=== PATIENT | male | born 1935 | race Caucasian/White ===

== ENCOUNTER 2018-11-11 12:55 | Emergency (ER) | payer MEDICARE, OTHER ==
[~2018-11-11] VITALS: Ht 177.8 cm; Wt 91.6 kg
--- NOTE | 2018-11-11 13:21 | ED GI ---
General Stated Complaint: RECTAL BLEEDING Source of Information: Patient Exam Limitations: No Limitations History of Present Illness Date Seen by Provider: Nov 11, 2018 Time Seen by Provider: 13:04 Initial Comments The patient presents to ER by private conveyance with his with chief complaint that 11:00 this morning he had bright red blood per rectum and about an hour later he had a stool with blood mixed in it. He is not having any dysuria, discharge or hematuria. He has a history of a GI bleed from gastric ulcers 10 years ago and had to have EGD and colonoscopy. He had another stress ulcer about 5 or 6 years ago when he had his open heart surgery and had to have an EGD to have it cauterized. The patient had a little bit of low abdominal discomfort initially that went away within about 20 minutes. He has no pain now. He is not having any chest pain shortness of breath. He does not take Plavix but does take baby aspirin daily. He is not on a blood thinner. Allergies and Home Medications Allergies Coded Allergies: morphine (Verified Adverse Reaction, Unknown, 11/11/18) Patient Home Medication List Home Medication List Reviewed: Yes Review of Systems Review of Systems Constitutional: No chills, No diaphoresis EENTM: No Blurred Vision, No Double Vision Respiratory: Denies Cough, Denies Orthopnea Cardiovascular: Denies Chest Pain, Denies Edema, Denies Lightheadedness Gastrointestinal: See HPI; Denies Abdomen Distended; Abdominal Pain; Denies Constipated, Denies Diarrhea, Denies Nausea Genitourinary: Denies Burning, Denies Discharge Musculoskeletal: No back pain, No joint pain Past Wxekabv-Jhbmvu-Pjtluf Hx Patient Social History Alcohol Use: Denies Use Recreational Drug Use: No Smoking Status: Never a Smoker Physical Exam Vital Signs Vital Signs - First Documented 11/11/18 13:00 Temp 98.9 Pulse 67 Resp 16 B/P (MAP) 148/87 (107) Pulse Ox 95 O2 Delivery Room Air Capillary Refill : Height/Weight/BMI Height: '" Weight: lbs. oz. kg; BMI Method: General Appearance: WD/WN, no apparent distress HEENT: PERRL/EOMI, pharynx normal Respiratory: chest non-tender, lungs clear, normal breath sounds, no respirato ry distress, no accessory muscle use Cardiovascular: normal peripheral pulses, regular rate, rhythm, no edema Peripheral Pulses: 2+ Dorsalis Pedis (R), 2+ Left Dors-Pedis (L) Gastrointestinal: normal bowel sounds (active), non tender, soft Rectal: normal rectal tone, heme positive stool; No hemorrhoids; other (bright red blood at the anus) Extremities: normal inspection, no pedal edema, normal capillary refill Neurologic/Psychiatric: alert, normal mood/affect, oriented x 3 Skin: normal color, warm/dry Progress/Results/Core Measures Results/Orders Lab Results Laboratory Tests Test 11/11/18 13:10 11/11/18 13:40 Range/Units Stool Occult Blood Immunoassay POSITIVE H NEGATIVE White Blood Count 7.9 4.3-11.0 10^3/uL Red Blood Count 4.41 4.35-5.85 10^6/uL Hemoglobin 14.1 13.3-17.7 G/DL Hematocrit 42 40-54 % Mean Corpuscular Volume 96 80-99 FL Mean Corpuscular Hemoglobin 32 25-34 PG Mean Corpuscular Hemoglobin Concent 33 32-36 G/DL Red Cell Distribution Width 12.3 10.0-14.5 % Platelet Count 148 130-400 10^3/uL Mean Platelet Volume 11.8 H 7.4-10.4 FL Neutrophils (%) (Auto) 65 42-75 % Lymphocytes (%) (Auto) 24 12-44 % Monocytes (%) (Auto) 8 0-12 % Eosinophils (%) (Auto) 2 0-10 % Basophils (%) (Auto) 1 0-10 % Neutrophils # (Auto) 5.1 1.8-7.8 X 10^3 Lymphocytes # (Auto) 1.9 1.0-4.0 X 10^3 Monocytes # (Auto) 0.6 0.0-1.0 X 10^3 Eosinophils # (Auto) 0.1 0.0-0.3 10^3/uL Basophils # (Auto) 0.1 0.0-0.1 10^3/uL Sodium Level 138 135-145 MMOL/L Potassium Level 3.9 3.6-5.0 MMOL/L Chloride Level 99 98-107 MMOL/L Carbon Dioxide Level 26 21-32 MMOL/L Anion Gap 13 5-14 MMOL/L Blood Urea Nitrogen 20 H 7-18 MG/DL Creatinine 1.17 0.60-1.30 MG/DL Estimat Glomerular Filtration Rate 60 BUN/Creatinine Ratio 17 Glucose Level 104 70-105 MG/DL Calcium Level 8.7 8.5-10.1 MG/DL Corrected Calcium 8.5 8.5-10.1 MG/DL Total Bilirubin 1.6 H 0.1-1.0 MG/DL Aspartate Amino Transf (AST/SGOT) 27 5-34 U/L Alanine Aminotransferase (ALT/SGPT) 30 0-55 U/L Alkaline Phosphatase 32 L 40-136 U/L Total Protein 6.8 6.4-8.2 GM/DL Albumin 4.2 3.2-4.5 GM/DL My Orders Orders - SHERRY FAGAN Cbc With Automated Diff (11/11/18 13:15) Comprehensive Metabolic Panel (11/11/18 13:15) Occult Blood Stool (11/11/18 13:15) Pantoprazole Tablet (Protonix Tablet) (11/11/18 14:00) Vital Signs/I&O 11/11/18 13:00 Temp 98.9 Pulse 67 Resp 16 B/P (MAP) 148/87 (107) Pulse Ox 95 O2 Delivery Room Air Progress Progress Note : Time: 13:22 Progress Note Asymptomatic bright red blood per rectum. He has a history of gastric ulcers and does not member the results of any of his colonoscopies. We'll plan to put him on an antacid and as long as he is not close to needing a transfusion and asymptomatic we will set him up outpatient with general surgery, Dr. Reyes. Consults : Consulting Physician: ADRIANNA REYES DO Consults Notes Discussed the case and he agrees see the patient in the clinic. Departure Impression Primary Impression: BRBPR (bright red blood per rectum) Disposition: 01 HOME, SELF-CARE Condition: Stable Departure-Patient Inst. Decision time for Depature: 14:09 Referrals: ADRIANNA REYES MAXWELL MD (PCP/Family) Primary Care Physician Patient Instructions: Bloody Stools, Adult (DC) Add. Discharge Instructions: group director experience the pantoprazole take 40 mg daily until you see the surgeon and get set up for endoscopy. Call Dr. Reyes and request an appointment. Scripts Pantoprazole Sodium (Pantoprazole Sodium) 40 Mg Tablet. 40 MG PO DAILY for 30 Days, #30 TAB 0 Refills Prov: SHERRY FAGAN 11/11/18 SHERRY FAGAN Nov 11, 2018 13:21
[2018-11-11 13:47] LABS: WHITE BLOOD COUNT 7.9 10^3/uL (4.3-11.0)
[2018-11-11 13:48] LABS: HEMATOCRIT 42 % (40-54); HEMOGLOBIN 14.1 G/DL (13.3-17.7); MEAN CORPUSCULAR HEMOGLOBIN 32 PG (25-34); MEAN CORPUSCULAR HGB CONC 33 G/DL (32-36); MEAN CORPUSCULAR VOLUME 96 FL (80-99); MEAN PLATELET VOLUME 11.8 FL (7.4-10.4); PLATELET COUNT 148 10^3/uL (130-400); RED CELL DISTRIBUTION WIDTH 12.3 % (10.0-14.5)
[2018-11-11 13:49] LABS: BASOPHILS # (AUTO) 0.1 10^3/uL (0.0-0.1); BASOPHILS % (AUTO) 1 % (0-10); EOSINOPHILS # (AUTO) 0.1 10^3/uL (0.0-0.3); EOSINOPHILS % (AUTO) 2 % (0-10); LYMPHOCYTES # (AUTO) 1.9 X 10^3 (1.0-4.0); LYMPHOCYTES % (AUTO) 24 % (12-44); MONOCYTES # (AUTO) 0.6 X 10^3 (0.0-1.0); MONOCYTES % (AUTO) 8 % (0-12); NEUTROPHILS # (AUTO) 5.1 X 10^3 (1.8-7.8); NEUTROPHILS % (AUTO) 65 % (42-75)
[2018-11-11] MEDS ORDERED: PANTOPRAZOLE 40 MG (PROTONIX) TAB PO ONE (14:00)
[2018-11-11 14:05] LABS: BILIRUBIN,TOTAL 1.6 MG/DL (0.1-1.0); CALCIUM 8.7 MG/DL (8.5-10.1); CREATININE SERUM 1.17 MG/DL (0.60-1.30); POTASSIUM 3.9 MMOL/L (3.6-5.0); TOTAL PROTEIN 6.8 GM/DL (6.4-8.2)
[2018-11-11 14:06] LABS: ALBUMIN 4.2 GM/DL (3.2-4.5)
[2018-11-11] MEDS ORDERED: PANT40TA3 PO (14:14)
[2018-11-11 14:30] VITALS: BP 144/68
== END 2018-11-11 14:30 | disposition home or self-care (01) ==
LOC: EDUNIT# 12:55 → ER FS 12:57
DX: K62.5 Hemorrhage of anus and rectum (principal); Z88.5 Allergy status to narcotic agent; Z87.19 Personal history of other diseases of the digestive system
CPT/HCPCS: 36415; 80053; 82274; 85025

== ENCOUNTER 2018-11-13 05:46 | Outpatient (CLI) | payer MEDICARE ==
[~2018-11-13] VITALS: Ht 177.8 cm; Wt 91.6 kg
[~2018-11-13 05:46] MED LIST changes: -ATOR40TA70 PO; -HYDR25TA4 PO; -LISI40TA PO
[2018-11-13] MEDS ORDERED: HYDR25TA4 PO (10:58)
[2018-11-13] MEDS ORDERED: LISI40TA PO (10:58)
[2018-11-13] MEDS ORDERED: ATOR40TA70 PO (10:58)
== END 2018-11-13 10:59 | disposition home or self-care (01) ==
LOC: PREOP 05:46
PROVIDERS: ATTEND Surgery
DX: Z01.818 Encounter for other preprocedural examination (principal)

== ENCOUNTER → 2018-11-13 | Outpatient (CLI) | payer MEDICARE ==
[~2018-11-13] MED LIST: ATOR40TA70 PO; HYDR25TA4 PO; LISI40TA PO; PANT40TA3 PO
[2018-11-13 08:56] LABS: HEMOGLOBIN 15.3 G/DL (13.3-17.7)
== END ==
LOC: LAB FS 08:06
PROVIDERS: ATTEND Surgery
DX: K62.5 Hemorrhage of anus and rectum (principal)
CPT/HCPCS: 36415; 85014; 85018

== ENCOUNTER 2018-11-17 09:27 | Day surgery (SDC) | payer MEDICARE ==
[~2018-11-17] VITALS: Ht 177.8 cm; Wt 91.6 kg
[~2018-11-17 09:27] MED LIST changes: +ATOR40TA70 PO; +HYDR25TA4 PO; +LISI40TA PO
[2018-11-17] MEDS ORDERED: LACTATED RINGERS 1,000 ML IV ONE (09:35)
[2018-11-17 10:00] VITALS: BP 134/81
[2018-11-17] MEDS ORDERED: LACTATED RINGERS 1,000 ML IV STA (10:14)
[2018-11-17] MEDS ORDERED: HURRICAINE EXT TUBE (BENZOCAINE) XX PRN (10:15)
[2018-11-17] MEDS ORDERED: ASPI-999 PO (10:25)
--- NOTE | 2018-11-17 10:56 | Progress Note-Pre Operative ---
Pre-Operative Progress Note H&P Reviewed The H&P was reviewed, patient examined and no changes noted. Time Seen by Provider: 10:54 Date H&P Reviewed: Nov 17, 2018 Time H&P Reviewed: 10:55 Pre-Operative Diagnosis: Rectal bleed SHEY GORDON DO Nov 17, 2018 10:56
[2018-11-17] MEDS ORDERED: PROPOFOL INJECTION 50 ML IV ONE (11:14)
[2018-11-17] MEDS ORDERED: MIDAZOLAM 2 MG/2 ML (VERSED) VIAL ONE (11:15)
[2018-11-17] MEDS ORDERED: fentaNYL INJECTION 100 MCG/2 ML AMP ONE (11:15)
[2018-11-17] MEDS ORDERED: LIDOCAINE PF 2% 5 ML (XYLOCAINE) VIAL ONE (11:15)
[2018-11-17 12:30] VITALS: BP 136/80
--- NOTE | 2018-11-17 12:45 | Progress Note-Post Operative ---
Post-Operative Progess Note Surgeon (s)/Non Destructive Testing Technician (s) Surgeon SHEY GORDON DO Non Destructive Testing Technician: none Pre-Operative Diagnosis Rectal bleed Post-Operative Diagnosis dudoenal ulcer Esophagitis ? Antral ulcer colon polyps diverticula internal hemorrhoids Procedure & Operative Findings Date of Procedure 11/17/18 Procedure Performed/Findings EGD with bx colon with snare Anesthesia Type IV sedation by MUSIC MIXER Estimated Blood Loss Estimated blood loss (mL): scant Specimens/Packing Specimens Removed Duodenal ulcer bx Antral bx GE jxn bx Transverse colon polyp Descending colon polyp SHEY GORDON DO Nov 17, 2018 12:45
--- NOTE | 2018-11-17 12:46 | Endoscopy Discharge Instruct ---
Endo Procedure/Findings Findings 1.: Duodenal Ulcer 2.: Gastritis 3.: Polyp 4.: Diverticulosis, Internal Hemorrhoids Discharge Instructions - Activity: You might feel a little sleepy until tomorrow. This is due to the medicine you received to relax you. Until tomorrow, you should: NOT drive a car, operate machinery or power tools. NOT drink any alcoholic beverages. NOT make any important decisions or sign importortant papers. Do not return to work until tomorrow, unless otherwise instructed. Resume previous activities tomorrow. Diet: Start by taking liquids. If you tolerate liquids, advance to solid food. make an appointment for one week Instructions: 1.: EGD in 6-8 weeks 2.: Colonscopy in 5 years Notify Physician - If you experience excessive bleeding, unusual abdominal pain, fever, or chest pain, contact your doctor immediately. Follow-Up: - I have received and understand the above instructions and will call my doctor if I have any further questions. Patient Signature Date Nurse Signature Other (Relationship) SHEY GORDON DO Nov 17, 2018 12:46
--- NOTE | 2018-11-17 22:05 | OPERATIVE REPORT ---
DATE OF SERVICE: PREOPERATIVE DIAGNOSES: Rectal bleeding, hiatal hernia. POSTOPERATIVE DIAGNOSES: 1. Duodenal ulcer. 2. Esophagitis. 3. Antral ulcer. 4. Colon polyps. 5. Diverticula. 6. Internal hemorrhoids. 7. Hiatal hernia. PROCEDURE: 1. EGD with biopsy. 2. Colonoscopy with snare polypectomy. SURGEON: Ron Cobian DO LINE UP MACHINE OPERATOR: None. ANESTHESIA: IV sedation by the CUPROUS CHLORIDE OPERATOR. SPECIMENS: 1. Biopsy from the duodenal ulcer. 2. Biopsy from the GE junction. 3. Biopsy of the antrum. 4. Transverse colon polyp. 5. Descending colon polyp. BLOOD LOSS: Scant. FLUIDS: Per anesthesia. POSTOPERATIVE CONDITION: Stable. INDICATION FOR PROCEDURE: The patient is an 83-year-old male who had some rectal bleeding and he needed a workup. FINDINGS: The patient had a duodenal ulcer that had looked like it stopped bleeding, no signs of recent bleed. Also had what almost looked like an antral ulcer or kind of a diverticulum, picture taken and biopsie done. He also had large diverticula. He had a couple of polyps as well in the colon and they were snared and then sent to pathology. PROCEDURE NOTE: After informed consent was obtained, the patient was brought to the endoscopy suite, placed in the bed in left lateral decubitus position. He was administered IV sedation by the CUPROUS CHLORIDE OPERATOR who then monitored his vitals the entire time, heart rate, blood pressure and pulse ox and first started with the EGD, placed the scope down the mouth through the esophagus into the stomach, pushed to the antrum and then pushed into the first portion of duodenum noted an ulcer, took a picture of this, pushed into the second and third portion of duodenum looked fine, took a picture. Backed up and then did a biopsy of this duodenal ulcer just the surrounding edge. Pulled back in the antrum looked like it had almost like a diverticula possibly this was an ulcer elected to biopsy this. Retroflexed the scope saw a small hiatal hernia, but no other obvious pathology in the stomach, pulled the scope back up to the GE junction, looked like there was some mild esophagitis and a biopsy here as well. I then switched scopes, switched gloves, went down below, started the colonoscopy, pushed in, on the way in, noted some large diverticula and then in the transverse colon, soft, flat polyp, did snare polypectomy and then pushed passes to the cecum, took a picture of appendiceal orifice and then got into the terminal ileum and took a picture and then slowly withdrew the scope, insufflating to look circumferentially while looking at the cecum up the ascending colon to the hepatic flexure, then down the transverse colon, the splenic flexure, into the descending colon. In the descending colon, saw another flat polyp, did another snare polypectomy and then continued down through the descending colon and the sigmoid colon, again saw large diverticula throughout here and then into the rectum, saw large vessel in here, which could have been part of the bleeding. Retroflexed the scope in the rectal vault, saw very minimal internal hemorrhoids barely grade I and then removed the scope. The patient tolerated the procedure and he was recovered in endoscopy suite. Job ID: [id number] DocumentID: [id number] Dictated Date: 11/17/2018 14:47:58 Clinical Nurse Date: 11/17/2018 22:04:24 Dictated By: RON COBIAN DO
== END 2018-11-17 12:55 | disposition home or self-care (01) ==
LOC: ENDO 09:27
PROVIDERS: ATTEND Surgery
DX: D12.3 Benign neoplasm of transverse colon (principal); D12.4 Benign neoplasm of descending colon; K64.8 Other hemorrhoids; K57.30 Diverticulosis of large intestine without perforation or abscess without bleeding; K26.9 Duodenal ulcer, unspecified as acute or chronic, without hemorrhage or perforation; K25.9 Gastric ulcer, unspecified as acute or chronic, without hemorrhage or perforation; K20.9 Esophagitis, unspecified; I25.10 Atherosclerotic heart disease of native coronary artery without angina pectoris; I10 Essential (primary) hypertension; Z79.82 Long term (current) use of aspirin; Z79.899 Other long term (current) drug therapy

== ENCOUNTER 2020-01-11 15:37 | Inpatient (IN) | payer MEDICARE ==
[~2020-01-11] VITALS: Ht 177 cm; Wt 84.0 kg
[2020-01-11] VITALS (7 sets, daily range): BP systolic 109–123; BP diastolic 64–102
[~2020-01-11 15:37] MED LIST changes: +ASPI-999 PO
--- NOTE | 2020-01-11 15:52 | ED GI ---
General Stated Complaint: RECTAL BLEEDING Source of Information: Patient Exam Limitations: No Limitations History of Present Illness Date Seen by Provider: Jan 11, 2020 Time Seen by Provider: 15:48 Initial Comments To ER with reports of rectal bleeding 3 today. The first episode was very dark and nearly black. The past 2 episodes have been much brighter in color. 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 That occurred at [facility]. He ended up with EGD and cauterization of the bleeding ulcer. He did have a left cochlear implant surgery at [facility] last week. He is not on oral anticoagulation. He has felt progressively more weak as the day has gone on. Timing/Duration: 12 Hours Severity/Quality: Moderate Location: Generalized Abdomen (had some mild abdominal cramping earlier but that is gone.) Radiation: No Radiation Activities at Onset: None Associated Symptoms: Denies Symptoms Allergies and Home Medications Allergies Coded Allergies: morphine (Verified Adverse Reaction, Unknown, 11/11/18) Home Medications Aspirin 81 Mg Tab.chew, 81 MG PO DAILY, (Reported) Atorvastatin Calcium 40 Mg Tablet, 40 MG PO HS, (Reported) Hydrochlorothiazide 25 Mg Tablet, 25 MG PO DAILY, (Reported) Lisinopril 40 Mg Tablet, 40 MG PO BID, (Reported) Patient Home Medication List Home Medication List Reviewed: Yes Review of Systems Review of Systems Constitutional: see HPI; No chills, No fever; weakness EENTM: No Symptoms Reported Respiratory: No Symptoms Reported Cardiovascular: No Symptoms Reported Gastrointestinal: See HPI; Denies Constipated, Denies Diarrhea, Denies Nausea; Rectal Bleeding; Denies Vomiting Genitourinary: No Symptoms Reported Musculoskeletal: no symptoms reported Skin: no symptoms reported Psychiatric/Neurological: No Symptoms Reported Endocrine: No Symptoms Reported Hematologic/Lymphatic: No Symptoms Reported Past Qozcbhr-Rdlzeq-Ejfqlj Hx Patient Social History 2nd Hand Smoke Exposure: No Recent Foreign Travel: No Contact w/Someone Who Travel: No Recent Hopitalizations: No Immunizations Up To Date Date of Pneumonia Vaccine: Jul 18, 2018 Seasonal Allergies Seasonal Allergies: No Past Medical History Surgeries: Yes (right hip replacement) Appendectomy, CABG, Gallbladder, Joint Replacement Respiratory: No Cardiac: Yes (stents x3, quad bypass 2014) Coronary Artery Disease, High Cholesterol Neurological: No Genitourinary: No Gastrointestinal: Yes (rectal bleeding) Musculoskeletal: No Endocrine: No HEENT: No Cancer: No Psychosocial: No Integumentary: No Blood Disorders: No Physical Exam Vital Signs Capillary Refill : Height/Weight/BMI Height: 5'10.00" Weight: 202lbs. 0.0oz. [id number]; 29.0 BMI Method:Stated General Appearance: WD/WN, no apparent distress, other (alert and oriented and hemodynamically stable without tachycardia or hypotension.) HEENT: PERRL/EOMI, normal ENT inspection (pale conjunctiva) Respiratory: no respiratory distress, no accessory muscle use Cardiovascular: regular rate, rhythm, no murmur Gastrointestinal: normal bowel sounds, non tender, soft Extremities: normal range of motion, non-tender Neurologic/Psychiatric: alert, normal mood/affect Skin: normal color, warm/dry Progress/Results/Core Measures Results/Orders My Orders Orders - PLIO COLLAZO APRN Protime With Inr (01/11/20 15:46) Partial Thromboplastin Time (01/11/20 15:46) Cbc With Automated Diff (01/11/20 15:46) Comprehensive Metabolic Panel (01/11/20 15:46) Ed Iv/Invasive Line Start (01/11/20 15:46) Red Cells Leukocytes Reduced (01/11/20 15:46) Pantoprazole Injection (Protonix Injecti (01/11/20 16:00) Departure Impression Primary Impression: Gastrointestinal bleed Qualified Codes: K92.2 - Gastrointestinal hemorrhage, unspecified Disposition: ADMITTED INPATIENT Condition: Stable Admissions Decision to Admit Reason: Admit from ER (General) Decision to Admit/Date: Jan 11, 2020 Time/Decision to Admit Time: 15:52 Departure-Patient Inst. Referrals: DEREK PAUL MD (PCP/Family) Primary Care Physician PILO COLLAZO APRN Jan 11, 2020 15:52
[2020-01-11] MEDS ORDERED: PANTOPRAZOLE 40 MG (PROTONIX) VIAL IV ONE (16:00)
[2020-01-11 16:05] LABS: BASOPHILS # (AUTO) 0.1 10^3/uL (0.0-0.1); BASOPHILS % (AUTO) 1 % (0-10); EOSINOPHILS # (AUTO) 0.2 10^3/uL (0.0-0.3); EOSINOPHILS % (AUTO) 1 % (0-10); HEMATOCRIT 40 % (40-54); HEMOGLOBIN 13.3 G/DL (13.3-17.7); LYMPHOCYTES # (AUTO) 2.6 X 10^3 (1.0-4.0); LYMPHOCYTES % (AUTO) 23 % (12-44); MEAN CORPUSCULAR HEMOGLOBIN 32 PG (25-34); MEAN CORPUSCULAR HGB CONC 34 G/DL (32-36); MEAN CORPUSCULAR VOLUME 97 FL (80-99); MEAN PLATELET VOLUME 12.5 FL (7.4-10.4); MONOCYTES # (AUTO) 0.9 X 10^3 (0.0-1.0); MONOCYTES % (AUTO) 8 % (0-12); NEUTROPHILS # (AUTO) 7.6 X 10^3 (1.8-7.8); NEUTROPHILS % (AUTO) 67 % (42-75); PLATELET COUNT 201 10^3/uL (130-400); RED CELL DISTRIBUTION WIDTH 12.4 % (10.0-14.5); WHITE BLOOD COUNT 11.3 10^3/uL (4.3-11.0)
--- NOTE | 2020-01-11 16:15 | NUR ---
Pt assisted to restroom by ES Rowan; pt noted to have large bloody stool as described by Harpal.
[2020-01-11 16:21] LABS: PROTHROMBIN TIME PATIENT 13.6 SEC (12.2-14.7)
[2020-01-11 16:24] LABS: BILIRUBIN,TOTAL 0.9 MG/DL (0.1-1.0); CALCIUM 8.9 MG/DL (8.5-10.1); CREATININE SERUM 1.25 MG/DL (0.60-1.30); POTASSIUM 4.3 MMOL/L (3.6-5.0); TOTAL PROTEIN 7.2 GM/DL (6.4-8.2)
[2020-01-11] MEDS ORDERED: NS IV 1000 ML 1,000 ML IV SCH (16:30)
--- NOTE | 2020-01-11 16:35 | NUR ---
Pt noted to have an episode of hypotension; Harpal aware and order received for IV fluid. Will continue to monitor.
--- NOTE | 2020-01-11 17:02 | NUR ---
Family called and updated on admission and visitor policy.
--- NOTE | 2020-01-11 17:03 | NUR ---
Dr. Cobian at bedside for assessment.
--- NOTE | 2020-01-11 17:37 | Consultation - Surgery ---
History of Present Illness History of Present Illness Patient Consulted On(bj/time) 01/11/20 17:32 Time Seen by Provider: 17:02 History of Present Illness Surgery asked to consult regarding rectal bleed. HPI per ED: To ER with reports of rectal bleeding 3 today. The first episode was very dark and nearly black. The past 2 episodes have been much brighter in color. 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 That occurred at [facility]. He ended up with EGD and cauterization of the bleeding ulcer. He did have a left cochlear implant surgery at [facility] last week. He is not on oral anticoagulation. He has felt progressively more weak as the day has gone on. Timing/Duration: 12 Hours Severity/Quality: Moderate Location: Generalized Abdomen (had some mild abdominal cramping earlier but that is gone.) Radiation: No Radiation Activities at Onset: None Associated Symptoms: Denies Symptoms When I spoke to the pt he stated he hadn't had any bleeding or problems since I last saw him November 2018. He states "my stomach was rolling, like gas or have to have BM, but no pain". When I saw him in 2019 he had Antral and Duodenal ulcer with polyps in colon, but no bleeding from any colon pathology. Allergies and Home Medications Allergies Coded Allergies: morphine (Verified Adverse Reaction, Unknown, 11/11/18) Home Medications Aspirin 81 Mg Tab.chew, 81 MG PO DAILY, (Reported) Atorvastatin Calcium 40 Mg Tablet, 40 MG PO HS, (Reported) Hydrochlorothiazide 25 Mg Tablet, 25 MG PO DAILY, (Reported) Lisinopril 40 Mg Tablet, 40 MG PO BID, (Reported) Patient Home Medication List Home Medication List Reviewed: Yes Past Jucveje-Vmiaki-Tbfemz Hx Patient Social History Alcohol Use: Denies Use Recreational Drug Use: No Smoking Status: Never a Smoker 2nd Hand Smoke Exposure: No Recent Foreign Travel: No Contact w/Someone Who Travel: No Recent Infectious Disease Expo: No Recent Hopitalizations: No Immunizations Up To Date Date of Pneumonia Vaccine: Jul 18, 2018 Seasonal Allergies Seasonal Allergies: No Surgeries History of Surgeries: Yes (right hip replacement) Surgeries: Appendectomy, CABG, Gallbladder, Joint Replacement Respiratory History of Respiratory Disorde: No Cardiovascular History of Cardiac Disorders: Yes (stents x3, quad bypass 2014) Cardiac Disorders: Coronary Artery Disease, High Cholesterol Neurological History of Neurological Disord: No Genitourinary History of Genitourinary Disor: No Gastrointestinal History of Gastrointestinal Di: Yes (rectal bleeding) Musculoskeletal History of Musculoskeletal Dis: No Endocrine History of Endocrine Disorders: No HEENT History of HEENT Disorders: Yes Loss of Vision: Denies Hearing Impairment: Hard of Hearing, Hearing Aide Right, Hearing Aide Left (cochlear implant, placed last week) Cancer History of Cancer: No Psychosocial History of Psychiatric Problem: No Integumentary History of Skin or Integumenta: No Blood Transfusions History of Blood Disorders: No Family Medical History Significant Family History: DVT/PE (sister), Other Conditions/Hx (Pt denies any HTN, DM or CAD in his family) Review of Systems-General Constitutional: dizziness, malaise, weakness EENTM: hearing loss; No blurred vision, No double vision, No epistaxis, No throat swelling Respiratory: No dyspnea on exertion, No hemoptysis, No short of breath Cardiovascular: No chest pain, No edema; Hx of Intervention; No palpitations Gastrointestinal: No abdominal pain, No nausea, No vomiting Genitourinary: No dysuria, No frequency, No hematuria Musculoskeletal: joint pain, joint swelling, muscle stiffness Skin: No change in color, No change in hair/nails Psychiatric/Neurological: Denies Anxiety, Denies Depressed, Denies Seizure, Denies Tremors Other Pt denies any hx of abnormal bleeding or bruising Physical Exam-General Problems Physical Exam Vital Signs Vital Signs - First Documented 01/11/20 16:00 Temp 36.7 Pulse 95 Resp 18 B/P (MAP) 130/85 (100) Pulse Ox 94 O2 Delivery Room Air Capillary Refill : Less Than 3 Seconds General Appearance: WD/WN, no apparent distress Eyes: Bilateral Eye PERRL, Bilateral Eye EOMI HEENT: pharynx normal; No scleral icterus (R), No scleral icterus (L); other (incision behind left ear (sutures still in place) from cochlear implant) Neck: non-tender, supple Respiratory: lungs clear, normal breath sounds, no respiratory distress, no accessory muscle use Cardiovascular: regular rate, rhythm, no murmur Gastrointestinal: non tender, soft, no organomegaly, no pulsatile mass Back: no CVA tenderness, no vertebral tenderness Extremities: normal range of motion, no pedal edema, no calf tenderness, normal capillary refill Neurologic/Psychiatric: alert, normal mood/affect, oriented x 3 Skin: normal color, warm/dry Lymphatic: no adenopathy (neck, axilla or groin) Data Review Labs Laboratory Tests 01/11/20 15:49: White Blood Count 11.3H, Red Blood Count 4.10L, Hemoglobin 13.3, Hematocrit 40, Mean Corpuscular Volume 97, Mean Corpuscular Hemoglobin 32, Mean Corpuscular Hemoglobin Concent 34, Red Cell Distribution Width 12.4, Platelet Count 201, Mean Platelet Volume 12.5H, Neutrophils (%) (Auto) 67, Lymphocytes (%) (Auto) 23, Monocytes (%) (Auto) 8, Eosinophils (%) (Auto) 1, Basophils (%) (Auto) 1, Neutrophils # (Auto) 7.6, Lymphocytes # (Auto) 2.6, Monocytes # (Auto) 0.9, Eosinophils # (Auto) 0.2, Basophils # (Auto) 0.1, Prothrombin Time 13.6, INR Comment 1.0, Activated Partial Thromboplast Time 31, Sodium Level 137, Potassium Level 4.3, Chloride Level 103, Carbon Dioxide Level 24, Anion Gap 10, Blood Urea Nitrogen 20H, Creatinine 1.25, Estimat Glomerular Filtration Rate 55, BUN/Creatinine Ratio 16, Glucose Level 115H, Calcium Level 8.9, Corrected Calcium 8.9, Total Bilirubin 0.9, Aspartate Amino Transf (AST/SGOT) 23, Alanine Aminotransferase (ALT/SGPT) 30, Alkaline Phosphatase 41, Total Protein 7.2, Albumin 4.0 Assessment/Plan Assessment/Plan Assessment/Plan Rectal Bleed CAD, HTN Hx of Antral and Duodenal Ulcer Pt is being admitted to the ICU secondary to 4 bloody BM's. He will have IV fluids started, check H/H in the am, clear liquids and NPO after midnight. Unfortunately it is too late to prep him today for Colonoscopy and he ate around lunch time; therefore, EGD will be scheduled for tomorrow and Colonoscopy on Saturday (bowel prep Saturday). Pt has been through both before and we went over the procedures again; risks and complications not limited to pain, bleeding, infection, scar and even intestinal or esophageal perforation. All questions answered to his satisfaction. Consent ordered. SHEY GORDON DO Jan 11, 2020 17:37
[2020-01-11] MEDS ORDERED: ONDANSETRON 4 MG/2 ML (SDV) Z0FRAN IV PRN ×2 (17:45→18:15)
[2020-01-11] MEDS ORDERED: CATHETER FLUSH 10 ML SYR IV PRN (17:45)
[2020-01-11] MEDS: LACTATED RINGERS 1,000 ML IV SCH (17:52)
[2020-01-11 18:11] LABS: HEMOGLOBIN 11.8 G/DL (13.3-17.7)
--- NOTE | 2020-01-11 18:22 | NUR ---
DR CORBETT INFORMED OF CONSULT AND DR GORDON INFORMED OF H&H. NO NEW ORDERS RECEIVED.
--- NOTE | 2020-01-11 20:26 | History & Physical-Hospitalist ---
History of Present Illness HPI/Chief Complaint CC: GIB HPI: This is an 84yoWM clinic patient of [facility] who presented to the ER with bloody stools. Patient is known to Dr Cobian for stomach ulcers and GIB so he has been consulted. Patient is hemodynamically stable but the amount of bloody stools increases risk for hypovolumic shock she he was admitted to ICU. Source: patient, RN/MD Exam Limitations: no limitations Date Seen 01/11/20 Time Seen by a Provider: 18:00 Attending Physician Nel Julien DO PCP Self,Tac[facility]ANCE Referring Physician Date of Admission Jan 11, 2020 at 16:22 Home Medications & Allergies Home Medications Reviewed patient Home Medication Reconciliation performed by pharmacy medication reconciliations voip network technician and/or nursing. Patients Allergies have been reviewed. Allergies Allergies Coded Allergies morphine (Verified Adverse Reaction, Unknown, 11/11/18) Past Whdktlx-Sutcue-Jcluvg Hx Past Med/Social Hx: Reviewed Nursing Past Med/Soc Hx, Reviewed and Corrections made Patient Social History Marrital Status: Employed/Student: retired Alcohol Use: Denies Use Recreational Drug Use: No Smoking Status: Never a Smoker 2nd Hand Smoke Exposure: No Recent Foreign Travel: No Contact w/other who traveled: No Recent Hopitalizations: No Recent Infectious Disease Expo: No Immunizations Up To Date Date of Pneumonia Vaccine: Jul 18, 2018 Seasonal Allergies Seasonal Allergies: No Past Medical History Surgeries: Appendectomy, CABG, Gallbladder, Joint Replacement Cardiac: Coronary Artery Disease, High Cholesterol Gastrointestinal: Ulcer Musculoskeletal: Arthritis Loss of Vision: Denies Hearing Impairment: Hard of Hearing, Hearing Aide Right, Hearing Aide Left (cochlear implant, placed last week) History of Blood Disorders: No Family History Blood clots G8 SISTER DVT/PE (sister), Other Conditions/Hx (Pt denies any HTN, DM or CAD in his family) Review of Systems Constitutional: see HPI, dizziness, weakness Gastrointestinal: melena, nausea Physical Exam Physical Exam Vital Signs Vital Signs - First Documented 01/11/20 16:00 Temp 36.7 Pulse 95 Resp 18 B/P (MAP) 130/85 (100) Pulse Ox 94 O2 Delivery Room Air Capillary Refill : Less Than 3 Seconds Height, Weight, BMI Height: 5'10.00" Weight: 202lbs. 0.0oz. 91.042254ri; 26.00 BMI Method:Stated General Appearance: No Apparent Distress, Chronically ill Eyes: Right Eye Normal Inspection, Right Eye PERRL HEENT: PERRL/EOMI, TMs Normal, Normal ENT Inspection, Pharynx Normal, Moist Mucous Membranes Neck: Full Range of Motion, Normal Inspection, Non Tender Respiratory: Chest Non Tender, Lungs Clear, Normal Breath Sounds, No Accessory Muscle Use, No Respiratory Distress Cardiovascular: Regular Rate, Rhythm, No Edema, No Gallop, No JVD, No Murmur, Normal Peripheral Pulses Gastrointestinal: Normal Bowel Sounds, No Organomegaly, No Pulsatile Mass, Non Tender, Soft Back: Normal Inspection, No CVA Tenderness, No Vertebral Tenderness Extremity: Normal Capillary Refill, Normal Inspection, Normal Range of Motion, Non Tender, No Calf Tenderness, No Pedal Edema Neurologic/Psychiatric: Alert, Oriented x3, No Motor/Sensory Deficits, Normal Mood/Affect Skin: Normal Color, Warm/Dry Lymphatic: No Adenopathy Results Results/Procedures Labs Laboratory Tests 01/11/20 15:49 01/11/20 17:59 Patient resulted labs reviewed. Assessment/Plan Admission Diagnosis Assessment: GIB Acute blood loss anemia HTN Plan: ICU Dr Cobian consult appreciated Admission Status: Inpatient Order (span 2 midnights) Reason for Inpatient Admission: GIB Diagnosis/Problems Diagnosis/Problems (1) Gastrointestinal bleed Status: Acute Qualifiers: GI bleed type/associated pathology: unspecified gastrointestinal hemorrhage type Qualified Codes: K92.2 - Gastrointestinal hemorrhage, unspecified Clinical Quality Measures DVT/VTE Risk/Contraindication: Risk Factor Score Per Nursin RFS Level Per Nursing on Admit: 4+=Very High Other: GI BLEED NEL JULIEN DO Jan 11, 2020 20:26
[2020-01-11] MEDS: MELATONIN 3 MG TABLET PO SCH (21:00)
[2020-01-11] MEDS: PANTOPRAZOLE 40 MG (PROTONIX) VIAL IV SCH (21:00)
[2020-01-12] VITALS (17 sets, daily range): BP systolic 81–147; BP diastolic 51–86
[2020-01-12] MEDS: LACTATED RINGERS 1,000 ML IV SCH ×2 (02:29→16:47)
[2020-01-12 03:43] LABS: BASOPHILS # (AUTO) 0.1 10^3/uL (0.0-0.1); BASOPHILS % (AUTO) 1 % (0-10); EOSINOPHILS # (AUTO) 0.2 10^3/uL (0.0-0.3); EOSINOPHILS % (AUTO) 2 % (0-10); HEMATOCRIT 33 % (40-54); HEMOGLOBIN 10.8 G/DL (13.3-17.7); LYMPHOCYTES # (AUTO) 2.4 X 10^3 (1.0-4.0); LYMPHOCYTES % (AUTO) 24 % (12-44); MEAN CORPUSCULAR HEMOGLOBIN 32 PG (25-34); MEAN CORPUSCULAR HGB CONC 33 G/DL (32-36); MEAN CORPUSCULAR VOLUME 98 FL (80-99); MEAN PLATELET VOLUME 12.2 FL (7.4-10.4); MONOCYTES # (AUTO) 0.8 X 10^3 (0.0-1.0); MONOCYTES % (AUTO) 8 % (0-12); NEUTROPHILS # (AUTO) 6.4 X 10^3 (1.8-7.8); NEUTROPHILS % (AUTO) 65 % (42-75); PLATELET COUNT 147 10^3/uL (130-400); RED CELL DISTRIBUTION WIDTH 12.5 % (10.0-14.5); WHITE BLOOD COUNT 9.9 10^3/uL (4.3-11.0)
[2020-01-12 04:01] LABS: BUN/CREATININE RATIO 18; CARBON DIOXIDE 20 MMOL/L (21-32); CHLORIDE 106 MMOL/L (98-107); CREATININE SERUM 1.03 MG/DL (0.60-1.30); GFR ESTIMATED > 60; GLUCOSE 103 MG/DL (70-105); MAGNESIUM 1.6 MG/DL (1.6-2.4); PHOSPHORUS 2.9 MG/DL (2.3-4.7); POTASSIUM 3.9 MMOL/L (3.6-5.0); SODIUM 137 MMOL/L (135-145)
--- NOTE | 2020-01-12 05:06 | Pulmonary Consultation ---
KERRY GILLESPIE,MED STUDENT 01/12/20 0506: History of Present Illness History of Present Illness Date Seen by Provider: Jan 12, 2020 Time Seen by Provider: 04:48 Date of Admission History of Present Illness Pateint is a 84 yo male that presented to the ER yesterday with blood in his stool x3. The first episode was described as dark/black and the 2nd/3rd episodes were a brighter color. 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 He had a left cocholer implant placed last week by Dr. Sid Oliver at [facility]. He reports having a colonoscopy by Dr. Cobian last year. Currently that patient says that he feels good and is ready to get his EGD and colonoscopy done; EGD is scheduled for today and Colonoscopy is scheduled for tomorrow, both will be preformed by Dr. Cobian. Allergies and Home Medications Allergies Coded Allergies: morphine (Verified Adverse Reaction, Unknown, 11/11/18) Home Medications Aspirin 81 Mg Tab.chew, 81 MG PO DAILY, (Reported) Atorvastatin Calcium 40 Mg Tablet, 40 MG PO HS, (Reported) Hydrochlorothiazide 25 Mg Tablet, 25 MG PO DAILY, (Reported) Lisinopril 40 Mg Tablet, 40 MG PO BID, (Reported) Past Mdnzczk-Bepcyt-Zxhdoc Hx Past Med/Social Hx: Reviewed Nursing Past Med/Soc Hx, Reviewed and Corrections made Patient Social History Alcohol Use: Denies Use Recreational Drug Use: No Smoking Status: Never a Smoker 2nd Hand Smoke Exposure: No Recent Foreign Travel: No Contact w/Someone Who Travel: No Recent Infectious Disease Expo: No Recent Hopitalizations: No Immunizations Up To Date Date of Pneumonia Vaccine: Jul 18, 2018 Seasonal Allergies Seasonal Allergies: No Past Medical History Surgeries: Yes (right hip replacement) Appendectomy, CABG, Gallbladder, Joint Replacement Respiratory: No Cardiac: Yes (stents x3, quad bypass 2014) Coronary Artery Disease, High Cholesterol Neurological: No Genitourinary: No Gastrointestinal: Yes (rectal bleeding) Ulcer Musculoskeletal: No Arthritis Endocrine: No HEENT: Yes Loss of Vision: Denies Hearing Impairment: Hard of Hearing, Hearing Aide Right, Hearing Aide Left (cochlear implant, placed last week) Cancer: No Psychosocial: No Integumentary: No Blood Disorders: No Family Medical History Blood clots G8 SISTER DVT/PE (sister), Other Conditions/Hx (Pt denies any HTN, DM or CAD in his family) Review of Systems Constitutional: No: Fever, Chills, Sweats ENT: Other (bilateral hearing loss L>R); No: Ear pain Respiratory: No: Cough, Dry, Shortness of breath Cardiovascular: No: Chest Pain, Palpitations, Orthopnea, Edema Gastrointestinal: Diarrhea, Melena, Hematochezia; No: Nausea, Vomiting Genitourinary: No Dysuria, No Frequency Skin: No: Rash, Lesions Sepsis Event Evaluation Height, Weight, BMI Height: 5'10.00" Weight: 202lbs. 0.0oz. 91.465832rn; 26.00 BMI Method:Stated Exam Exam Vital Signs Date Time Temp Pulse Resp B/P (MAP) Pulse Ox O2 Delivery O2 Flow Rate FiO2 01/12/20 04:00 100 Room Air 01/12/20 03:00 57 9 115/70 (85) 97 Room Air 01/12/20 02:06 57 111/72 (85) 97 Room Air 01/12/20 01:00 59 01/12/20 01:00 59 12 107/62 (77) 97 Room Air 01/12/20 00:00 36.4 01/12/20 00:00 63 16 118/74 (89) 97 Room Air 01/12/20 00:00 96 Room Air 01/11/20 23:00 64 16 109/65 (80) 97 Room Air 01/11/20 22:00 67 33 112/70 (84) 97 Room Air 01/11/20 21:00 67 22 115/85 (95) 100 Room Air 01/11/20 20:00 69 17 110/64 (79) 99 Room Air 01/11/20 20:00 99 Room Air 01/11/20 19:00 71 01/11/20 19:00 71 119/73 (88) 98 Room Air 01/11/20 18:00 69 11 116/102 (107) 100 Room Air 01/11/20 17:25 36.1 01/11/20 17:21 70 01/11/20 17:15 123/75 (91) Room Air 01/11/20 17:12 97 Room Air 01/11/20 16:56 74 18 118/81 97 Room Air 01/11/20 16:00 36.7 95 18 130/85 (100) 94 Room Air I & O 01/12/20 07:00 Intake Total 2020 ml Balance 2020 ml Height & Weight Height: 5'10.00" Weight: 202lbs. 0.0oz. 91.224573mi; 26.00 BMI Method:Stated General Appearance: No Apparent Distress, Chronically ill HEENT: PERRL/EOMI, TMs Normal Neck: Full Range of Motion, Normal Inspection, Non Tender Respiratory: Chest Non Tender, Lungs Clear, Normal Breath Sounds, No Accessory Muscle Use, No Respiratory Distress Cardiovascular: Regular Rate, Rhythm, No Edema, No Gallop, No JVD, No Murmur, Normal Peripheral Pulses Capillary Refill: Less Than 3 Seconds Gastrointestinal: non tender, soft, no organomegaly, no pulsatile mass Extremity: Normal Capillary Refill, Normal Inspection, Normal Range of Motion, Non Tender, No Calf Tenderness, No Pedal Edema Neurologic/Psychiatric: Alert, Oriented x3, No Motor/Sensory Deficits, Normal Mood/Affect Skin: Normal Color, Warm/Dry Results Lab Laboratory Tests 01/11/20 15:49 01/11/20 17:59 01/12/20 03:33 Assessment/Plan Assessment/Plan GI bleeding of unknown origin - Agree with surgery management and plan - pantoprazol 40mg BID and LR @ 100ml/hr - EGD planned for today by Dr. Cobian - Colonoscopy planned for tomorrow with bowel prep started today, by Dr. Cobian Hx of gastric and duodenal ulcers At this time patient can be transferred to the 4th floor HUBER SNELL DO 01/12/20 0654: Allergies and Home Medications Allergies Coded Allergies: morphine (Verified Adverse Reaction, Unknown, 11/11/18) Home Medications Aspirin 81 Mg Tab.chew, 81 MG PO DAILY, (Reported) Atorvastatin Calcium 40 Mg Tablet, 40 MG PO HS, (Reported) Hydrochlorothiazide 25 Mg Tablet, 25 MG PO DAILY, (Reported) Lisinopril 40 Mg Tablet, 40 MG PO BID, (Reported) Past Iluosdg-Nrbywh-Hnrnus Hx Family Medical History Blood clots G8 SISTER Review of Systems Time Seen by Provider: 06:50 Exam Exam General Appearance: No Apparent Distress HEENT: PERRL/EOMI, TMs Normal Neck: Normal Inspection, Non Tender Respiratory: Chest Non Tender, Lungs Clear, Normal Breath Sounds, No Accessory Muscle Use, No Respiratory Distress Cardiovascular: Regular Rate, Rhythm, No Edema, No Gallop, No JVD, No Murmur, Normal Peripheral Pulses Gastrointestinal: non tender, soft, no organomegaly, no pulsatile mass Extremity: Normal Capillary Refill, Normal Inspection, Normal Range of Motion, Non Tender, No Calf Tenderness, No Pedal Edema Neurologic/Psychiatric: Alert, Oriented x3, No Motor/Sensory Deficits, Normal Mood/Affect Skin: Normal Color, Warm/Dry Assessment/Plan Assessment/Plan GI bleed -Surgery consulted and plan is for scope today -Continue Protonix IV 40mg BID -Continue ICU care for now and await scopes -Monitor HB Hx of gastric and duodenal ulcers Supervisory-Addendum Brief Verification & Attestation Participated in pt care: history, MDM, physical Personally performed: exam, history, MDM Care discussed with: Medical Student Procedures: n/a Verification and Attestation of Medical Student E/M Service A medical student performed and documented this service in my presence. I reviewed and verified all information documented by the medical student and made modifications to such information, when appropriate. I personally performed the physical exam and medical decision making. Huber Snell, Jan 12, 2020,06:53 KERRY GILLESPIE,MED STUDENT Jan 12, 2020 05:06 HUBER SNELL DO Jan 12, 2020 06:54
[2020-01-12] MEDS ORDERED: PROMETHAZINE INJ 25 MG/ML (PHENERGAN) AMP ONE (05:58)
[2020-01-12] MEDS ORDERED: MAGNESIUM 1 GM/100 ML IVPB 100 ML IV SCH (06:00)
[2020-01-12] MEDS ORDERED: KCL 20 MEQ TAB (K-DUR) PO SCH (06:00)
[2020-01-12] MEDS ORDERED: POTASSIUM CL 10MEQ/50ML IVPB 50 ML IV SCH (06:00)
[2020-01-12] MEDS: PROMETHAZINE INJ 25 MG/ML (PHENERGAN) AMP IVP PRN ×2 (06:14→17:42)
[2020-01-12] MEDS: MAGNESIUM 1 GM/100 ML IVPB 100 ML IV SCH ×2 (06:23→08:57)
--- NOTE | 2020-01-12 07:57 | Diagnostic Imaging Report ---
INDICATION: Dyspnea. TECHNIQUE: Single view chest 3:17 AM. CORRELATION STUDY: None FINDINGS: Poststernotomy and coronary artery bypass. Heart size upper limits of normal. Prominent mediastinum with tortuous course of thoracic aorta. Pulmonary vasculature overall within normal limits. The lungs are clear with no consolidating infiltrate. There is no significant effusion or pneumothorax. IMPRESSION: 1. Poststernotomy changes. Cardiac enlargement without failure. Dictated by: Dictated on workstation # [id number]
[2020-01-12] MEDS: PANTOPRAZOLE 40 MG (PROTONIX) VIAL IV SCH ×2 (08:57→19:53)
[2020-01-12] MEDS ORDERED: LISI-552 PO (09:01)
[2020-01-12] MEDS ORDERED: HYDR12.56 PO (09:01)
[2020-01-12] MEDS ORDERED: ASCO250T17 PO (09:01)
[2020-01-12] MEDS ORDERED: MELA5TAB21 PO (09:01)
[2020-01-12] MEDS ORDERED: ATOR20TA66 PO (09:01)
[2020-01-12] MEDS ORDERED: ASPI-983 PO (09:01)
--- NOTE | 2020-01-12 09:20 | NUR ---
SPOKE WITH THE PT, WENT THRU THE EXT MED HISTORY AND CALLED [facility] TO COMPLETE THE MED REC PT WAS ABLE TO TELL ME ALL HIS MEDICATIONS WELL WHEN/HOW HE TAKES EACH ON 01-04-2020 PT PICKED UP KEFLEX 500MG #12 AND NORCO 5/325MG #12 BUT SAYS THEY MADE HIM VERY SICK AND HE QUIT TAKING THEM SHORTLY AFTER STARTING. FOR THIS REASON I DID NOT INCLUDE THESE MEDICATIONS ON THE MED REC ATORVASTATIN- THE EXT MED HISTORY SHOWS 20MG 1 TAB DAILY- HOWEVER PT SAYS HE IS TAKING 40MG. I CALLED [facility] AND THEY VERIFIED THAT THE LAST RX PT PICKED UP WAS THE 20MG BUT ON 12-24-2019 DR. CULP SENT IN AN RX FOR THE 40MG TABS. PT VERIFIED THIS AND SAYS HE IS TAKING 2 (20MG) TABS TO EQUAL THE 40MG TO USE UP ALL THE PRESCRIPTION OTC MEDS: VIT C ASPIRIN 81MG
--- NOTE | 2020-01-12 10:19 | Progress Note - Hospitalist ---
QIAN CASTELLANOS MED STUDENT 01/12/20 1019: Subjective HPI/CC On Admission Date Seen by Provider: Jan 12, 2020 Time Seen by Provider: 08:30 CC: GIB HPI: This is an 84yoWM clinic patient of [facility] who presented to the ER with bloody stools. Patient is known to Dr Cobian for stomach ulcers and GIB so he has been consulted. Patient is hemodynamically stable but the amount of bloody stools increases risk for hypovolumic shock she he was admitted to ICU. Subjective/Events-last exam Pt presents with acute gi bleed. pt states that he had four bowel movements last night. pt stated that they were black with some red mixed in. pt denies any pain. pt denies nausea and vomiting. pt is hemodynamically stable. pt to have egd today and colonoscopy tomorrow. Review of Systems HEENT: No Head Aches Cardiovascular: No: Chest Pain Gastrointestinal: Melena, Hematochezia; No: Nausea, Vomiting, Abdominal Pain Focused Exam Respiratory: Lungs Clear, Normal Breath Sounds, No Accessory Muscle Use, No Respiratory Distress Cardiovascular: Regular Rate, Rhythm, No Edema, No JVD Objective Exam Vital Signs Vital Signs Date Time Temp Pulse Resp B/P (MAP) Pulse Ox O2 Delivery O2 Flow Rate FiO2 01/12/20 09:00 57 18 130/70 (90) 96 Room Air 01/12/20 07:18 36.8 Capillary Refill : Less Than 3 Seconds General Appearance: No Apparent Distress Neck: Non Tender Respiratory: Lungs Clear, Normal Breath Sounds, No Accessory Muscle Use, No Respiratory Distress Cardiovascular: Regular Rate, Rhythm, No Edema, No JVD Gastrointestinal: Normal Bowel Sounds, Non Tender, Soft Neurologic/Psychiatric: Alert, Oriented x3 Lymphatic: No Adenopathy Results/Procedures Lab Laboratory Tests 01/11/20 15:49 01/11/20 17:59 01/12/20 03:33 Patient resulted labs reviewed. Assessment/Plan Assessment and Plan Assess & Plan/Chief Complaint Assessment 01/12/20 acute GI bleed gastric ulcer duodenal ulcer hypovolemic shock acute blood loss anemia Plan 01/12/20 IV fluids EGD scheduled for today Colonoscopy possible for tomorrow Clinical Quality Measures DVT/VTE Risk/Contraindication: Risk Factor Score Per Nursin RFS Level Per Nursing on Admit: 4+=Very High Other: GI BLEED NEL JULIEN DO 01/12/20 1238: Subjective HPI/CC On Admission Date Seen by Provider: Jan 12, 2020 Time Seen by Provider: 09:00 Subjective/Events-last exam Having an EGD today Hgb stable at 10 No more bleeding per rectum Pt tired Listened to the cardiac murmur right second intercostal space Review of Systems General: Fatigue, Malaise Neurological: Weakness Objective Exam General Appearance: No Apparent Distress, WD/WN HEENT: PERRL/EOMI, Normal ENT Inspection, Pharynx Normal, Moist Mucous Membranes Neck: Full Range of Motion, Normal Inspection, Non Tender, Supple, Carotid Bruit Respiratory: Chest Non Tender, Lungs Clear, Normal Breath Sounds, No Accessory Muscle Use, No Respiratory Distress Cardiovascular: Regular Rate, Rhythm, No Edema, No Gallop, No JVD, Normal Peripheral Pulses, Systolic Murmur Gastrointestinal: Normal Bowel Sounds, No Organomegaly, No Pulsatile Mass, Non Tender, Soft Back: Normal Inspection, No CVA Tenderness, No Vertebral Tenderness Extremity: Normal Capillary Refill, Normal Inspection, Normal Range of Motion, Non Tender, No Calf Tenderness, No Pedal Edema Neurologic/Psychiatric: Alert, Oriented x3, No Motor/Sensory Deficits, Normal Mood/Affect Skin: Normal Color, Warm/Dry Lymphatic: No Adenopathy Assessment/Plan Assessment and Plan Assess & Plan/Chief Complaint 01/12/20: EGD today Colonoscopy tomorrow Appreciate Dr. Cobian Diagnosis/Problems Diagnosis/Problems (1) Gastrointestinal bleed Status: Acute Qualifiers: Qualified Codes: K92.2 - Gastrointestinal hemorrhage, unspecified Supervisory-Addendum Brief Verification & Attestation Participated in pt care: history, MDM, physical Personally performed: exam, history, MDM, supervision of care Care discussed with: Medical Student Procedures: n/a Results interpretation: Verified all documentation Verification and Attestation of Medical Student E/M Service A medical student performed and documented this service in my presence. I reviewed and verified all information documented by the medical student and made modifications to such information, when appropriate. I personally performed the physical exam and medical decision making. Nel Julien, Jan 12, 2020,20:20 QIAN CASTELLANOS MED STUDENT Jan 12, 2020 10:19 NEL JULIEN DO Jan 12, 2020 12:38
[2020-01-12] MEDS ORDERED: LACTATED RINGERS 1,000 ML IV ONE ×2 (11:49→12:30)
[2020-01-12] MEDS ORDERED: proPOfol 200 MG/20 ML (DIPRIVAN) VIAL IV ONE (11:49)
[2020-01-12] MEDS ORDERED: BISACODYL 5 MG (DULCOLAX) TABLET PO NR ×2 (12:00→15:00)
[2020-01-12] MEDS ORDERED: HURRICAINE EXT TUBE (BENZOCAINE) XX ONE (12:30)
--- NOTE | 2020-01-12 12:34 | Progress Note-Post Operative ---
Post-Operative Progess Note Surgeon (s)/Pocket Grinder Operator (s) Surgeon SHEY GORDON DO Pocket Grinder Operator: none Pre-Operative Diagnosis Rectal bleed, hx of Antral ulcer Post-Operative Diagnosis Hiatal Hernia Procedure & Operative Findings Date of Procedure 01/12/20 Procedure Performed/Findings EGD Anesthesia Type IV sedation by COMPANY DRIVER Estimated Blood Loss Estimated blood loss (mL): none Specimens/Packing Specimens Removed none SHEY GORDON DO Jan 12, 2020 12:34
--- NOTE | 2020-01-12 13:32 | NUR ---
This RN took over patient care at this time. patient alert and orientated resting in recliner. no additional needs at this time
--- NOTE | 2020-01-12 13:32 | NUR ---
PATIENT TRANSFERRED TO ROOM 413 AT THIS TIME BY THIS RN, WITHOUT INCIDENT. PERSONAL BELONGINGS SENT WITH PATIENT. REPORT GIVEN TO BISHOP ROONEY, TO ASSUME CARE OF PATIENT.
[2020-01-12 15:25] LABS: BASOPHILS # (AUTO) 0.1 10^3/uL (0.0-0.1); BASOPHILS % (AUTO) 1 % (0-10); EOSINOPHILS # (AUTO) 0.2 10^3/uL (0.0-0.3); EOSINOPHILS % (AUTO) 2 % (0-10); HEMATOCRIT 36 % (40-54); HEMOGLOBIN 11.8 G/DL (13.3-17.7); LYMPHOCYTES # (AUTO) 2.5 X 10^3 (1.0-4.0); LYMPHOCYTES % (AUTO) 26 % (12-44); MEAN CORPUSCULAR HEMOGLOBIN 32 PG (25-34); MEAN CORPUSCULAR HGB CONC 32 G/DL (32-36); MEAN CORPUSCULAR VOLUME 99 FL (80-99); MEAN PLATELET VOLUME 12.6 FL (7.4-10.4); MONOCYTES # (AUTO) 0.6 X 10^3 (0.0-1.0); MONOCYTES % (AUTO) 7 % (0-12); NEUTROPHILS # (AUTO) 6.1 X 10^3 (1.8-7.8); NEUTROPHILS % (AUTO) 64 % (42-75); PLATELET COUNT 163 10^3/uL (130-400); RED CELL DISTRIBUTION WIDTH 12.5 % (10.0-14.5); WHITE BLOOD COUNT 9.5 10^3/uL (4.3-11.0)
--- NOTE | 2020-01-12 17:42 | NUR ---
complaint of upset stomach and diarrhea at this time. Patient was reminded that he received stool softeners a couple hours ago and diarrhea would be normal especially since we are starting a bowel prep for his colonoscopy. Phenergan given at this time per patient request to help with upset stomach. No additional needs
[2020-01-12] MEDS ORDERED: polyethylene glycoL Bowel Prep(MIRALAX) 238 GM PO NR (18:00)
[2020-01-12] MEDS ORDERED: diphenhydrAMINE 25 MG TAB (BENADRYL) PO PRN (20:15)
[2020-01-12] MEDS ORDERED: ALPRAZolam 0.25 MG (XANAX) TAB PO PRN (20:15)
[2020-01-12] MEDS ORDERED: CALCIUM CARBONATE 500 MG (TUMS) TAB.CHEW PO PRN (20:15)
[2020-01-12] MEDS ORDERED: DOCUSATE SODIUM 100 MG (COLACE) CAP PO PRN (20:15)
[2020-01-12] MEDS ORDERED: ACETAMINOPHEN 500 MG TAB (TYLENOL) PO PRN (20:15)
[2020-01-12] MEDS ORDERED: HYDROcodone/APAP 5 MG/325 MG (LORTAB) TAB PO PRN (20:15)
--- NOTE | 2020-01-12 20:42 | OPERATIVE REPORT ---
DATE OF SERVICE: 01/12/2020 PREOPERATIVE DIAGNOSIS: Rectal bleed, history of antral ulcer, rule out upper gastrointestinal bleed. POSTOPERATIVE DIAGNOSES: Rectal bleed, hiatal hernia. PROCEDURE: Esophagogastroduodenoscopy. SURGEON: Ron Cobian DO ELECTRONIC DATA PROCESSING AUDITOR: None. ANESTHESIA: IV sedation by the FAN RUNNER. SPECIMENS: None. BLOOD LOSS: None. FLUIDS: Per anesthesia. POSTOPERATIVE CONDITION: Stable. INDICATION FOR PROCEDURE: The patient is an 84-year-old male who had some rectal bleeding, anemia, history of gastric ulcers and needed a workup. FINDINGS: The patient had a hiatal hernia. There was no blood seen in the stomach. No ulcers and nothing seen in the duodenum. PROCEDURE NOTE: After informed consent was obtained, the patient was brought to the endoscopy suite, placed in bed in left lateral decubitus position. He was administered IV sedation by the FAN RUNNER who then monitored his vitals the entire time, heart rate, blood pressure and pulse ox and the scope was inserted down the mouth through the esophagus into the stomach, could see the diverticulum right near the antrum, did not see any ulcerations. There was no blood in the stomach, pushed into the duodenum, pushed in the first and second portion possibly third portion of duodenum. Again, did not see any bleeding or ulcerations, pulled back, retroflexed the scope, saw hiatal hernia, took a picture of this, then pulled into the GE junction. There was no bleeding or ulcerations here and at this point, then pushed the scope into the stomach, suctioned all the air out and then pulled the scope up the esophagus and out the mouth. The patient tolerated the procedure, recovered in endoscopy suite. Job ID: [id number] DocumentID: [id number] Dictated Date: 01/12/2020 12:34:36 Admissions Specialist Date: 01/12/2020 20:41:16 Dictated By: RON COBIAN DO
[2020-01-12] MEDS: MELATONIN 3 MG TABLET PO SCH (21:00)
[2020-01-12] MEDS: MIRTAZAPINE 15 MG (REMERON) TAB PO SCH ×2 (21:00→23:53)
[2020-01-13] VITALS (12 sets, daily range): BP systolic 105–137; BP diastolic 66–97
[2020-01-13] MEDS: LACTATED RINGERS 1,000 ML IV SCH ×3 (00:02→11:18)
[2020-01-13 05:11] LABS: BASOPHILS # (AUTO) 0.1 10^3/uL (0.0-0.1); BASOPHILS % (AUTO) 1 % (0-10); EOSINOPHILS # (AUTO) 0.3 10^3/uL (0.0-0.3); EOSINOPHILS % (AUTO) 3 % (0-10); HEMATOCRIT 32 % (40-54); HEMOGLOBIN 10.7 G/DL (13.3-17.7); LYMPHOCYTES % (AUTO) 22 % (12-44); MEAN CORPUSCULAR HEMOGLOBIN 32 PG (25-34); MEAN CORPUSCULAR HGB CONC 33 G/DL (32-36); MEAN CORPUSCULAR VOLUME 98 FL (80-99); MEAN PLATELET VOLUME 12.7 FL (7.4-10.4); MONOCYTES # (AUTO) 0.9 X 10^3 (0.0-1.0); MONOCYTES % (AUTO) 10 % (0-12); NEUTROPHILS # (AUTO) 5.8 X 10^3 (1.8-7.8); NEUTROPHILS % (AUTO) 64 % (42-75); PLATELET COUNT 137 10^3/uL (130-400); RED CELL DISTRIBUTION WIDTH 12.3 % (10.0-14.5)
[2020-01-13 05:36] LABS: BUN/CREATININE RATIO 13; CALCIUM 8.2 MG/DL (8.5-10.1); CARBON DIOXIDE 22 MMOL/L (21-32); CHLORIDE 107 MMOL/L (98-107); CREATININE SERUM 1.11 MG/DL (0.60-1.30); GFR ESTIMATED > 60; GLUCOSE 82 MG/DL (70-105); PHOSPHORUS 2.9 MG/DL (2.3-4.7); SODIUM 140 MMOL/L (135-145)
[2020-01-13] MEDS: PANTOPRAZOLE 40 MG (PROTONIX) VIAL IV SCH (08:23)
--- NOTE | 2020-01-13 08:42 | Diagnostic Imaging Report ---
INDICATION: Dyspnea. TECHNIQUE/COMPARISON: A frontal chest was obtained at 0340 hours and compared to yesterday. FINDINGS: There is post sternotomy change with cardiomegaly. There is no focal infiltrate, pneumothorax, or pleural fluid. IMPRESSION: Cardiomegaly with post sternotomy change. No focal infiltrate or pleural fluid. Dictated by: Dictated on workstation # [id number]
[2020-01-13] MEDS ORDERED: PANT40TA2 PO (10:11)
[2020-01-13] MEDS ORDERED: MIRT-47 PO (10:11)
--- NOTE | 2020-01-13 10:12 | Discharge Summary ---
Discharge Summary Hospital Course Was the Problem List Reviewed?: Yes Problems/Dx: (1) Gastrointestinal bleed Status: Acute Qualifiers: Qualified Codes: K92.2 - Gastrointestinal hemorrhage, unspecified Hospital Course Date of Admission: Jan 11, 2020 at 16:22 Admission Diagnosis : Family Physician/Provider: Tacos Gutierres MD Date of Discharge: 01/13/20 Discharge Diagnosis: Rectal bleed, anemia acute blood loss Hospital Course: Hospital Course: Pt had an uneventful hospital course. He was admitted for GI bleed, Hgb did drop 3 points but did not require transfusion. Dr. Cobian was consulted, performed EGD, showed hiatal hernia and colonoscopy was scheduled at time of this dictation but likely diverticular bleed was the source of the GI bleed and pt will be going home in improved condition and will follow up with PCP. Labs and Pending Lab Test: Laboratory Tests 01/12/20 15:10: White Blood Count 9.5, Red Blood Count 3.69L, Hemoglobin 11.8L, Hematocrit 36L, Mean Corpuscular Volume 99, Mean Corpuscular Hemoglobin 32, Mean Corpuscular Hemoglobin Concent 32, Red Cell Distribution Width 12.5, Platelet Count 163, Mean Platelet Volume 12.6H, Neutrophils (%) (Auto) 64, Lymphocytes (%) (Auto) 26, Monocytes (%) (Auto) 7, Eosinophils (%) (Auto) 2, Basophils (%) (Auto) 1, Neutrophils # (Auto) 6.1, Lymphocytes # (Auto) 2.5, Monocytes # (Auto) 0.6, Eosinophils # (Auto) 0.2, Basophils # (Auto) 0.1 01/13/20 04:40: White Blood Count 9.0, Red Blood Count 3.30L, Hemoglobin 10.7L, Hematocrit 32L, Mean Corpuscular Volume 98, Mean Corpuscular Hemoglobin 32, Mean Corpuscular Hemoglobin Concent 33, Red Cell Distribution Width 12.3, Platelet Count 137, Mean Platelet Volume 12.7H, Neutrophils (%) (Auto) 64, Lymphocytes (%) (Auto) 22, Monocytes (%) (Auto) 10, Eosinophils (%) (Auto) 3, Basophils (%) (Auto) 1, Neutrophils # (Auto) 5.8, Lymphocytes # (Auto) 2.0, Monocytes # (Auto) 0.9, Eosinophils # (Auto) 0.3, Basophils # (Auto) 0.1, Sodium Level 140, Potassium Level 4.0, Chloride Level 107, Carbon Dioxide Level 22, Anion Gap 11, Blood Urea Nitrogen 14, Creatinine 1.11, Estimat Glomerular Filtration Rate > 60, BUN/Creatinine Ratio 13, Glucose Level 82, Calcium Level 8.2L, Phosphorus Level 2.9, Magnesium Level 2.0 Microbiology 01/11/20 MRSA Screen - Final, Complete MRSA not isolated Home Meds Active Reported Atorvastatin Calcium 20 Mg Tablet 40 Mg PO HS TAKES 2 (20MG) TABS Aspirin EC (Aspirin) 81 Mg Tablet.dr 81 Mg PO HS Vitamin C (Ascorbic Acid) 250 Mg Tab.chew 250 Mg PO DAILY Hydrochlorothiazide 12.5 Mg Tablet 12.5 Mg PO DAILY Melatonin 5 Mg Tab.ir.er 5 Mg PO HS PRN Lisinopril 20 Mg Tablet 20 Mg PO BID Assessment/Pt Instructions [facility] saturday Discharge Planning: <30 minutes discharge planning Discharge Instructions Discharge Diet: No Restrictions Activity as Tolerated: Yes Discharge Physical Examination Vital Signs Vital Signs Date Time Temp Pulse Resp B/P (MAP) Pulse Ox O2 Delivery O2 Flow Rate FiO2 01/13/20 08:55 Room Air 01/13/20 08:00 36.7 66 20 132/67 (88) 97 01/12/20 20:00 8.00 General Appearance: No Apparent Distress, WD/WN, Chronically ill Respiratory: Chest Non Tender, Lungs Clear, Normal Breath Sounds, No Accessory Muscle Use, No Respiratory Distress Cardiovascular: Regular Rate, Rhythm, No Edema, No Gallop, No JVD, No Murmur, Normal Peripheral Pulses Allergies: Coded Allergies: morphine (Verified Adverse Reaction, Unknown, 11/11/18) Discharge Summary Date of Admission Jan 11, 2020 at 16:22 Date of Discharge Discharge Date: Jan 13, 2020 Admission Diagnosis Assessment: GIB Acute blood loss anemia HTN Plan: ICU Dr Cobian consult appreciated Discharge Diagnosis 01/12/20: EGD today Colonoscopy tomorrow Appreciate Dr. Cobian (1) Gastrointestinal bleed Status: Acute Qualifiers: Qualified Codes: K92.2 - Gastrointestinal hemorrhage, unspecified Clinical Quality Measures DVT/VTE Risk/Contraindication: Risk Factor Score Per Nursin RFS Level Per Nursing on Admit: 4+=Very High Other: GI BLEED AL VELA DO Jan 13, 2020 10:11
--- NOTE | 2020-01-13 10:57 | NUR ---
CM/SS: Visited with pt as to plan for discharge Plan: Pt to return home with no identified services at this time Summary: Pt is sitting in the recliner and reports he is doing ok. Pt is hard of hearing. Pt is known to this worker from the [facility]. Pt reports being here due to some stomach issues. Pt reports he is getting ready to have the colonoscopy later today, and if all go well, he will be ready to discharge to home. Pt continues to live at home with spouse Shirley. They are managing at this time. He gets along fine and and has no need for equipment or services at time of discharge. 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 He is awaiting it to heal so that he can hear out of his ear. Pt reports being hard of hearing and request this worker to speak up. Pt awaiting his colonoscopy. Pt is wished well as he discharges to home. This worker will follow up.
--- NOTE | 2020-01-13 11:33 | Progress Note ---
QIAN CASTELLANOS MED STUDENT 01/13/20 1133: Progress Note Hospital Course 84 yo M presented to the emergency department with a chief complaint of bright red blood in his bowel movements. pt was admitted to inpatient care. pt recently had surgery for L cochlear implant. pt has a history of stress ulcers. surgery was brought in to help with patient management. Patient had an EGD on 01/12/20 and is scheduled for a colonoscopy for today 01/13/20. pt no longer has bright red blood and denies any black stools. pt is to be discharged home pending his colonoscopy today. NEL JULIEN DO 01/13/20 2103: Supervisory-Addendum Brief Verification & Attestation Participated in pt care: history, MDM, physical Personally performed: exam, history, MDM, supervision of care Care discussed with: Medical Student Procedures: n/a Results interpretation: Verified all documentation Verification and Attestation of Medical Student E/M Service A medical student performed and documented this service in my presence. I reviewed and verified all information documented by the medical student and made modifications to such information, when appropriate. I personally performed the physical exam and medical decision making. Nel Julien, Jan 13, 2020,21:03 QIAN CASTELLANOS STUDENT Jan 13, 2020 11:33 NEL JULIEN DO Jan 13, 2020 21:03
[2020-01-13] MEDS ORDERED: LACTATED RINGERS 1,000 ML IV ONE ×2 (13:37→15:01)
[2020-01-13] MEDS ORDERED: MIDAZOLAM 2 MG/2 ML (VERSED) VIAL ONE (13:53)
[2020-01-13] MEDS ORDERED: PROPOFOL INJECTION 50 ML IV ONE (13:53)
--- NOTE | 2020-01-13 14:01 | Progress Note - Surgery ---
Subjective Time Seen by a Provider: 13:42 Subjective/Events-last exam Pt seen and examined, states he had 4 BM's today; 2 were dark red and 2 were raj colored. He denies abdominal pain. Review of Systems General: No Chills, No Night Sweats Pulmonary: No Dyspnea, No Cough Cardiovascular: No: Chest Pain, Palpitations Gastrointestinal: No: Nausea, Vomiting Objective Exam Vital Signs Date Time Temp Pulse Resp B/P (MAP) Pulse Ox O2 Delivery O2 Flow Rate FiO2 01/13/20 12:42 68 01/13/20 12:00 36.5 69 20 125/85 (98) 99 Room Air 01/13/20 08:55 Room Air 01/13/20 08:00 36.7 66 20 132/67 (88) 97 Room Air 01/13/20 06:46 73 01/13/20 04:00 36.7 68 20 133/72 (92) 97 Room Air 01/13/20 01:00 68 01/13/20 00:00 36.7 68 20 133/74 (93) 96 Room Air 01/12/20 20:00 99 Room Air 8.00 01/12/20 19:07 36.2 86 20 135/80 (98) 99 Room Air 01/12/20 19:00 70 01/12/20 16:00 100 Room Air 01/12/20 15:18 36.4 65 20 113/60 (77) 97 Room Air 01/12/20 14:00 35.7 62 16 147/65 (92) 97 Room Air I & O 01/13/20 06:59 Intake Total 1000 ml Output Total 3 ml Balance 997 ml Capillary Refill : Less Than 3 SecondsLess Than 3 Seconds General Appearance: No Apparent Distress, WD/WN HEENT: PERRL/EOMI Respiratory: Lungs Clear, Normal Breath Sounds, No Accessory Muscle Use, No Respiratory Distress Cardiovascular: Regular Rate, Rhythm, Systolic Murmur Gastrointestinal: non tender, soft, no organomegaly, no pulsatile mass Skin: Normal Color, Warm/Dry Results Lab Laboratory Tests 01/12/20 15:10: White Blood Count 9.5, Red Blood Count 3.69L, Hemoglobin 11.8L, Hematocrit 36L, Mean Corpuscular Volume 99, Mean Corpuscular Hemoglobin 32, Mean Corpuscular Hemoglobin Concent 32, Red Cell Distribution Width 12.5, Platelet Count 163, Mean Platelet Volume 12.6H, Neutrophils (%) (Auto) 64, Lymphocytes (%) (Auto) 26, Monocytes (%) (Auto) 7, Eosinophils (%) (Auto) 2, Basophils (%) (Auto) 1, Neutrophils # (Auto) 6.1, Lymphocytes # (Auto) 2.5, Monocytes # (Auto) 0.6, Eosinophils # (Auto) 0.2, Basophils # (Auto) 0.1 01/13/20 04:40: White Blood Count 9.0, Red Blood Count 3.30L, Hemoglobin 10.7L, Hematocrit 32L, Mean Corpuscular Volume 98, Mean Corpuscular Hemoglobin 32, Mean Corpuscular Hemoglobin Concent 33, Red Cell Distribution Width 12.3, Platelet Count 137, Mean Platelet Volume 12.7H, Neutrophils (%) (Auto) 64, Lymphocytes (%) (Auto) 22, Monocytes (%) (Auto) 10, Eosinophils (%) (Auto) 3, Basophils (%) (Auto) 1, Neutrophils # (Auto) 5.8, Lymphocytes # (Auto) 2.0, Monocytes # (Auto) 0.9, Eosinophils # (Auto) 0.3, Basophils # (Auto) 0.1, Sodium Level 140, Potassium Level 4.0, Chloride Level 107, Carbon Dioxide Level 22, Anion Gap 11, Blood Urea Nitrogen 14, Creatinine 1.11, Estimat Glomerular Filtration Rate > 60, BUN/Creatinine Ratio 13, Glucose Level 82, Calcium Level 8.2L, Phosphorus Level 2.9, Magnesium Level 2.0 Microbiology 01/11/20 MRSA Screen - Final, Complete MRSA not isolated Assessment/Plan Assessment/Plan Assessment/Plan Rectal Bleed CAD, HTN Hx of Antral and Duodenal Ulcer Pt had EGD, but that did not show anything so he did bowel prep yesterday and is ready for colonoscopy today. He had no questions about the procedure. Pt has been through both before and we went over the procedures again; risks and complications not limited to pain, bleeding, infection, scar and even intestinal perforation. All questions answered to his satisfaction. Clinical Quality Measures DVT/VTE Risk/Contraindication: Risk Factor Score Per Nursin RFS Level Per Nursing on Admit: 4+=Very High Other: GI BLEED SHEY GORDON DO Jan 13, 2020 14:01
[2020-01-13] MEDS ORDERED: proPOfol 200 MG/20 ML (DIPRIVAN) VIAL IV ONE ×2 (14:36→14:57)
[2020-01-13] MEDS ORDERED: EPINEPHrine INJECTION 1 MG/ML AMP ONE (14:40)
[2020-01-13] MEDS ORDERED: LACTATED RINGERS 1,000 ML IV STA (15:05)
[2020-01-13] MEDS ORDERED: LACTATED RINGERS 1,000 ML IV SCH (15:15)
--- NOTE | 2020-01-13 15:29 | Progress Note-Post Operative ---
Post-Operative Progess Note Surgeon (s)/Air Pollution Auditor (s) Surgeon SHEY GORDON DO Air Pollution Auditor: Farhan Covarrubias, MSIII Pre-Operative Diagnosis Rectal bleed, hx of Antral ulcer Post-Operative Diagnosis Bleeding Diverticulum Procedure & Operative Findings Date of Procedure 01/13/20 Procedure Performed/Findings Colonoscopy Anesthesia Type IV sedation by LEISURE STUDIES PROFESSOR Estimated Blood Loss Estimated blood loss (mL): 600ml suctioned out, with maybe only 20ml being active Specimens/Packing Specimens Removed none SHEY GORDON DO Jan 13, 2020 15:29
--- NOTE | 2020-01-13 15:30 | Anesthesia-General Post-Op ---
MAC Patient Condition Mental Status/LOC: Same as Preop Cardiovascular: Satisfactory Nausea/Vomiting: Absent Respiratory: Satisfactory Pain: Controlled Complications: Absent Post Op Complications Complications None Follow Up Care/Instructions Patient Instructions None needed. Anesthesiology Discharge Order Discharge Order Patient is doing well, no complaints, stable vital signs, no apparent adverse anesthesia problems. No complications reported per nursing. ROM ASIF CRNA Jan 13, 2020 15:30
--- NOTE | 2020-01-13 15:53 | NUR ---
Pastoral care visit.
--- NOTE | 2020-01-13 16:06 | NUR ---
BERTHA CALLED PER PT REQUEST, MESSAGE LEFT ON VOICE MAIL.
--- NOTE | 2020-01-13 18:45 | NUR ---
LOLIS HAMILTON demonstrates understanding of discharge instructions and accurately returns instructions upon questioning. Copy of Post-Discharge Instructions and Medication Discharge Instructions given to PT. LOLIS HAMILTON is able to manage continuing needs after discharge. Patients belongings returned to PT. Skin dry and intact; no breakdown noted. Patient discharged from [facility] on at 1845. LOLIS HAMILTON left floor via WC, accompanied by STAFF/FAMILY.
--- NOTE | 2020-01-14 01:40 | OPERATIVE REPORT ---
DATE OF SERVICE: PREOPERATIVE DIAGNOSIS: Rectal bleed. POSTOPERATIVE DIAGNOSIS: Diverticular bleed. PROCEDURE: Colonoscopy. SURGEON: Ron Cobian DO LINOLEUM LAYER HELPER: Farhan Covarrubias, MS3. ANESTHESIA: IV sedation by HEAD START COORDINATOR. SPECIMENS: None. BLOOD LOSS: There was probably about 600 mL of bloody looking fluid suctioned out of the colon. There was some active bleeding, but probably less than 20 mL of active bleeding that stopped at the end of the case. FLUIDS: Per anesthesia. POSTOPERATIVE CONDITION: Stable. INDICATION FOR PROCEDURE: The patient is an 84-year-old male, who has been having some rectal bleeding and has anemia, had an EGD performed, which did not show anything. Needed a colonoscopy. FINDINGS: The patient had a large amount of bloody liquid throughout the colon, did not really see any of the terminal ileum. Did see a diverticular bleed. PROCEDURE NOTE: After informed consent was obtained, the patient was brought to the endoscopy suite, placed in bed in left lateral decubitus position. He was administered IV sedation by the HEAD START COORDINATOR who then monitored his vitals the entire time, heart rate, blood pressure and pulse ox. Inserted the scope, pushed all the way about [address] in, noted a lot of bloody fluid, able to get all the cecum, there was a lot of blood covering the cecum, able to get into the terminal ileum and then pushed in about 10-20 cm at least did not see any bleeding up here and really did not see any of the right where at the ileocecal valve, took a picture of the appendiceal orifice and then slowly withdrew the scope insufflating and washing off the wall as well as suctioned it all the fluid, looking at the cecum, up the ascending colon to the hepatic flexure, then down the transverse colon, the splenic flexure, into the descending colon and then down in the sigmoid and in the sigmoid, somewhere in between sigmoid and descending colon about 40 cm encountered a what looked like a bleeding diverticulum, could actually see a bright red blood coming out, had the nurse start pulling lidocaine with epinephrine trying to flush and stay in the same position. Unfortunately, lost this area of bleeding and then spent the next 20 to 30 minutes at least possibly longer trying to find this area again flushing insufflating, washing everything out, I did not find this active bleeding area again. After going through this area 3 times, then elected to just continued down through the sigmoid into the rectum suction as much fluid as I could. In the end, suctioned out about 600 mL of bloody fluid. Again, probably only 20 mL of active or less. At this point, then removed the scope. The patient tolerated the procedure, was recovered in endoscopy suite. Job ID: [id number] DocumentID: [id number] Dictated Date: 01/13/2020 15:29:22 District Sales Manager Date: 01/14/2020 01:39:54 Dictated By: RON COBIAN DO
== END 2020-01-13 18:45 | disposition home or self-care (01) | DRG 377 ==
LOC: EDUNIT# 15:37 → ER 15:38 → ICU 16:22 → 4TH 01-12 13:30
PROVIDERS: ADMIT Internal Medicine; ATTEND Internal Medicine
PROC: 0DJ08ZZ Inspection of Upper Intestinal Tract, Via Natural or Artificial Opening Endoscopic (ICD-10-PCS; 2020-01-12)
PROC: 0DJD8ZZ Inspection of Lower Intestinal Tract, Via Natural or Artificial Opening Endoscopic (ICD-10-PCS; principal; 2020-01-13 14:00)
DX: K57.31 Diverticulosis of large intestine without perforation or abscess with bleeding (principal); R57.1 Hypovolemic shock; D62 Acute posthemorrhagic anemia; I10 Essential (primary) hypertension; I25.10 Atherosclerotic heart disease of native coronary artery without angina pectoris; E78.00 Pure hypercholesterolemia, unspecified; Z96.641 Presence of right artificial hip joint; K25.9 Gastric ulcer, unspecified as acute or chronic, without hemorrhage or perforation; K26.9 Duodenal ulcer, unspecified as acute or chronic, without hemorrhage or perforation; M19.91 Primary osteoarthritis, unspecified site; H91.93 Unspecified hearing loss, bilateral; Z96.21 Cochlear implant status; Z20.828 Contact with and (suspected) exposure to other viral communicable diseases; Z87.11 Personal history of peptic ulcer disease; Z86.010 Personal history of colon polyps; Z95.5 Presence of coronary angioplasty implant and graft; Z95.1 Presence of aortocoronary bypass graft; Z97.4 Presence of external hearing-aid; K44.9 Diaphragmatic hernia without obstruction or gangrene
CPT/HCPCS: 36415; 71045; 80048; 80053; 83735; 84100; 85014; 85018; 85025; 85610; 85730; 86850; 86900; 86901; 86920; 87081; 87635

== ENCOUNTER 2020-09-12 05:35 | Day surgery (SDC) | payer MEDICARE ==
[~2020-09-12] VITALS: Ht 170.2 cm; Wt 87.7 kg
[~2020-09-12 05:35] MED LIST changes: +ASCO250T17 PO; +ASPI-1238 PO; +ATOR20TA66 PO; +HYDR12.56 PO; +LISI20TA26 PO; -LISI40TA PO; +LISI40TA9 PO; +MELA5TAB21 PO; +MIRT-47 PO; +PANT40TA2 PO; -PANT40TA3 PO; +PANT40TA52 PO
[2020-09-12] MEDS ORDERED: NS IV 1000 ML 1,000 ML IV SCH (05:45)
--- NOTE | 2020-09-12 05:53 | ED Syncope ---
General Chief Complaint: Rect Problems Stated Complaint: RECTAL BLEED Source of Information: Patient, EMS, Family (daughter) Exam Limitations: Other (delirium) (SHERRY ROTHMAN) History of Present Illness Date Seen by Provider: Sep 12, 2020 Time Seen by Provider: 05:38 Initial Comments Patient presents ER by EMS from home with chief complaint that he was going to the bathroom and when he went to stand up he says he passed out. EMS remarks he was quite confused and did not answer questions appropriately but did speak and said over and over that he wanted help and he was cold. He has been having some bright red blood per stool and states he has been fighting a case of recurrent diverticulitis. He has not been on antibiotics recently. He is a patient of Dr. Ambrosio. No fevers nausea chills cough shortness of air or chest pain. Patient had colonoscopy by Dr. Cobian December 2019, 8 months ago. Found a bleeding bright red diverticulum about 40 cm in but loss of position. Suctioned about 600 mL of sanguinous fluid. EGD the day prior by Dr. Cobian demonstrated a hiatal hernia but no blood or ulcers or other adventitious findings. Patient is not presently on blood thinners, just aspirin 81 mg daily. History of appendectomy, cholecystectomy. Cochlear implant. (SHERRY ROTHMAN) Allergies and Home Medications Allergies Coded Allergies: amoxicillin (Unverified Allergy, Unknown, 09/12/20) states morphine (Verified Adverse Reaction, Unknown, 11/11/18) Home Medications Ascorbic Acid 250 Mg Tab.chew, 250 MG PO DAILY, (Reported) Aspirin 81 Mg Tablet.dr, 81 MG PO HS, (Reported) Atorvastatin Calcium 20 Mg Tablet, 40 MG PO HS, (Reported) TAKES 2 (20MG) TABS Hydrochlorothiazide 12.5 Mg Tablet, 12.5 MG PO DAILY, (Reported) Lisinopril 20 Mg Tablet, 20 MG PO BID, (Reported) Melatonin 5 Mg Tab.ir.er, 5 MG PO HS PRN for SLEEP, (Reported) Mirtazapine 15 Mg Tab.rapdis, 15 MG PO HS Prescribed by: AL VELA on 01/13/20 1011 Pantoprazole Sodium 40 Mg Tablet.dr, 40 MG PO DAILY Prescribed by: AL VELA on 01/13/20 1011 Patient Home Medication List Home Medication List Reviewed: Yes (SHERRY ROTHMAN) Review of Systems Constitutional: see HPI; No chills, No dizziness, No fever, No malaise EENTM: No ear discharge, No ear pain Respiratory: No cough, No short of breath Cardiovascular: No chest pain, No edema; Hx of Intervention (CABG); No palpitations Gastrointestinal: No abdominal pain, No nausea, No vomiting Genitourinary: No discharge, No dysuria Musculoskeletal: No back pain, No joint pain Skin: No pruritus, No rash Psychiatric/Neurological: Denies Anxiety, Denies Depressed, Denies Headache, Denies Numbness, Denies Paresthesia, Denies Seizure (SHERRY ROTHMAN) All Other Systems Reviewed Negative Unless Noted: Yes (SHERRY ROTHMAN) Past Igeknzb-Lnvhew-Qmwszj Hx Patient Social History Alcohol Use: Denies Use Drug of Choice: Denies Smoking Status: Never a Smoker 2nd Hand Smoke Exposure: No Recent Hopitalizations: No (SHERRY ROTHMAN) Immunizations Up To Date Date of Pneumonia Vaccine: Jul 18, 2018 (SHERRY ROTHMAN) Seasonal Allergies Seasonal Allergies: No (SHERRY ROTHMAN) Past Medical History Surgeries: Yes (right hip replacement) Appendectomy, CABG, Gallbladder, Joint Replacement Respiratory: No Cardiac: Yes (stents x3, quad bypass 2014) Coronary Artery Disease, High Cholesterol Neurological: No Genitourinary: No Gastrointestinal: Yes (rectal bleeding) Ulcer Musculoskeletal: No Arthritis Endocrine: No HEENT: Yes Loss of Vision: Denies Hearing Impairment: Hard of Hearing, Hearing Aide Right, Hearing Aide Left Cancer: No Psychosocial: No Integumentary: No Blood Disorders: No (SHERRY ROTHMAN) Family Medical History Blood clots G8 SISTER DVT/PE, Other Conditions/Hx (SHERRY ROTHMAN) Physical Exam Vital Signs Vital Signs - First Documented 09/12/20 05:38 Temp 36.2 Pulse 63 Resp 16 B/P (MAP) 166/86 (112) Pulse Ox 98 O2 Delivery Room Air (ZHENG SANDS MD) Vital Signs Capillary Refill : (SHERRY ROTHMAN) Height, Weight, BMI Height: 5'10.00" Weight: 202lbs. 0.0oz. [id number]; 26.00 BMI Method:Stated General Appearance: WD/WN, Mild Distress HEENT: PERRL/EOMI (3 mm reactive symmetric), TMs Normal (Negative for raccoon eyes, aj sign or hemotympanum), Normal ENT Inspection; No Moist Mucous Membranes Neck: Full Range of Motion, Normal Inspection, Non Tender, Supple Cardiovascular: Regular Rate, Rhythm, No Edema, Normal Peripheral Pulses Respiratory: Lungs Clear, Normal Breath Sounds, No Accessory Muscle Use, No Respiratory Distress Gastrointestinal: Normal Bowel Sounds, No Organomegaly, Non Tender, Soft Extremities: Normal Capillary Refill, Normal Inspection, Normal Range of Motion Neurologic/Psychiatric: Alert, Oriented x3, No Motor/Sensory Deficits, systems administrator II- XII Norm as Tested, Other (Anxious affect) Cranial Nerves: Normal Speech, PERRL, Hearing Deficit (L), Hearing Deficit (R) (Bilateral hard of hearing at baseline) Motor/Sensory: No Motor Deficit, No Sensory Deficit, No Pronator Drift Skin: Normal Color, Warm/Dry (GRACIA,SHERRY J) Progress/Results/Core Measures Results/Orders Lab Results Laboratory Tests Test 09/12/20 05:42 09/12/20 08:20 Range/Units White Blood Count 11.8 H 4.3-11.0 10^3/uL Red Blood Count 4.04 L 4.35-5.85 10^6/uL Hemoglobin 12.5 L 11.9 L 13.3-17.7 G/DL Hematocrit 38 L 37 L 40-54 % Mean Corpuscular Volume 94 80-99 FL Mean Corpuscular Hemoglobin 31 25-34 PG Mean Corpuscular Hemoglobin Concent 33 32-36 G/DL Red Cell Distribution Width 13.0 10.0-14.5 % Platelet Count 162 130-400 10^3/uL Mean Platelet Volume 13.7 H 7.4-10.4 FL Immature Granulocyte % (Auto) 0 % Neutrophils (%) (Auto) 60 42-75 % Lymphocytes (%) (Auto) 28 12-44 % Monocytes (%) (Auto) 8 0-12 % Eosinophils (%) (Auto) 3 0-10 % Basophils (%) (Auto) 1 0-10 % Neutrophils # (Auto) 7.1 1.8-7.8 X 10^3 Lymphocytes # (Auto) 3.3 1.0-4.0 X 10^3 Monocytes # (Auto) 0.9 0.0-1.0 X 10^3 Eosinophils # (Auto) 0.3 0.0-0.3 10^3/uL Basophils # (Auto) 0.1 0.0-0.1 10^3/uL Immature Granulocyte # (Auto) 0.0 0.0-0.1 10^3/uL Sodium Level 142 135-145 MMOL/L Potassium Level 3.9 3.6-5.0 MMOL/L Chloride Level 106 98-107 MMOL/L Carbon Dioxide Level 24 21-32 MMOL/L Anion Gap 12 5-14 MMOL/L Blood Urea Nitrogen 27 H 7-18 MG/DL Creatinine 1.26 0.60-1.30 MG/DL Estimat Glomerular Filtration Rate 55 BUN/Creatinine Ratio 21 Glucose Level 169 H 70-105 MG/DL Calcium Level 8.6 8.5-10.1 MG/DL Corrected Calcium 8.8 8.5-10.1 MG/DL Total Bilirubin 1.0 0.1-1.0 MG/DL Aspartate Amino Transf (AST/SGOT) 25 5-34 U/L Alanine Aminotransferase (ALT/SGPT) 24 0-55 U/L Alkaline Phosphatase 42 40-136 U/L Troponin I < 0.30 <0.30 NG/ML C-Reactive Protein < 0.30 <0.50 MG/DL Pro-B-Type Natriuretic Peptide 188.5 H <75.0 PG/ML Total Protein 6.3 L 6.4-8.2 GM/DL Albumin 3.7 3.2-4.5 GM/DL Lipase 29 8-78 U/L (ZHENG SANDS MD) My Orders Orders - ZHENG SANDS MD Iohexol Injection (Omnipaque 350 Mg/Ml 1 (09/12/20 07:30) Received Contrast (Hold Metformin- Contr (09/12/20 07:30) Sodium Chloride Flush (Catheter Flush Sy (09/12/20 07:30) Ns (Ivpb) (Sodium Chloride 0.9% Ivpb Bag (09/12/20 07:30) Hemoglobin (09/12/20 08:06) Hematocrit (09/12/20 08:06) (ZHENG SANDS MD) Medications Given in ED Current Medications Medications Dose Ordered Sig/Jamir Route Start Time Stop Time Status Last Admin Dose Admin Iohexol 100 ml ONCE ONCE IV 09/12/20 07:30 09/12/20 07:31 DC 09/12/20 07:19 100 ML Sodium Chloride 10 ml NEEDED PRN IV 09/12/20 07:30 09/12/20 07:19 10 ML Sodium Chloride 100 ml ONCE ONCE IV 09/12/20 07:30 09/12/20 07:31 DC 09/12/20 07:19 100 ML (ZHENG SANDS MD) Vital Signs/I&O 09/12/20 05:38 Temp 36.2 Pulse 63 Resp 16 B/P (MAP) 166/86 (112) Pulse Ox 98 O2 Delivery Room Air (ZHENG SANDS MD) Progress Progress Note : Time: 05:57 Progress Note Neurologically intact. Suspect she is had a syncopal episode likely related to acute blood loss anemia from diverticulitis versus pain versus orthostasis versus other. He presents with a significantly elevated blood pressure of 180 systolic. We will get a CT of his head, C-spine and abdomen and pelvis with IV contrast if he will tolerate it. We will start with a liter of normal saline. He appears to be clinically dry. Type and screen. N.p.o. Since last night. (SHERRY ROTHMAN) Progress Note #1: Time: 07:00 Progress Note I assumed care of the patient from Dr. Rothman at shift change pending CT scan of head, cervical spine due to his syncopal episode and scan of abdomen/pelvis with history of diverticular disease and previous GI bleeding, most recent episode was December 2019. His initial labs appear stable for his CBC he has mild el evation of WBC to 11.8 and Hgb stable at 12.5. Initial BUN slightly elevated to 27 which could go with GI bleeding. Troponin <0.3. Progress Note #2: Time: 07:[address] scan of head and cervical spine read out as no acute intracranial process, no hemorrhage, degenerative disc disease. CT abd/pelvis with diverticulosis and possible mild wall thickening, multiple renal cysts right side more than left. No obstruction or blockage. Pt did have urge like he needed to have more stool pass but then only had a small amount of blood in his underwear. Vital signs and Hgb stable. Will order repeat hgb/hct and check with [facility] television cameraman provider, Dr. Rai, and Dr. Cobian about the patient Progress Note #3: Time: 08:48 Progress Note repeat Hgb/Hct slightly decreased 11.9/37, down from 12.5 and 38. However, he has had additional bloody stools while in the ED (ZHENG SANDS MD) Initial ECG Impression Date: Sep 12, 2020 Initial ECG Impression Time: 05:47 Initial ECG Rate: 61 Initial ECG Rhythm: Normal Sinus Initial ECG Intervals: IL (237) Initial ECG Impression: 1st Degree AV Block Initial ECG Comparisson: No Previous ECG Available Comment First-degree AV block without clinically relevant ST changes. (SHERRY ROTHMAN) Diagnostic Imaging Diagonstic Imaging: CT Plain Films/CT/US/NM/MRI: c-spine, head Reviewed: Reviewed by Me Diagonstic Imaging: CT Plain Films/CT/US/NM/MRI: abdomen, pelvis Reviewed: Reviewed by Me (SHERRY ROTHMAN) Comments [facility] [place] NAME: LOLIS HAMILTON [facility] REC#: [id number] PT STATUS: REG ER : 1935 PHYSICIAN: SHERRY ROTHMAN MD ADMIT DATE: 09/12/20/ER FS Draft Date of Exam:09/12/20 CT HEAD/CERVICAL SPINE WO PROCEDURE: CT head and CT cervical spine without contrast. TECHNIQUE: Multiple contiguous axial images were obtained through the brain and cervical spine without the use of intravenous contrast. Sagittal and coronal reformations through the cervical spine were then performed. Auto Exposure Controls were utilized during the CT exam to meet ALARA standards for radiation dose reduction. INDICATION: Syncope, fall, bloody stools COMPARISON: None FINDINGS: CT HEAD: A cochlear implant is noted on the left, causing significant streak artifact. There is generalized parenchymal volume loss. There is no midline shift or mass effect. No acute intracranial hemorrhage is seen. There is no CT evidence of acute territorial ischemia. The calvarium appears intact. There is mild motion artifact. Visualized paranasal sinuses appear clear. CT CERVICAL SPINE: There is advanced degenerative change in the cervical spine at C5-C6 and C6-C7. Mild degenerative changes are seen elsewhere. No acute fracture is seen in the cervical spine. No bony fragments or hyperdense fluid collections are seen in the spinal canal. There is spinal canal narrowing at C5-C6 and C6-C7 due to the degenerative change. Soft tissues about the cervical spine demonstrate no acute abnormality. IMPRESSION: 1. No acute intracranial hemorrhage or CT evidence of acute territorial ischemia. 2. Degenerative changes in the cervical spine with no acute fracture seen. Dictated on workstation # [id number] Dict: 09/12/20 0728 Trans: 09/12/20 0733 CV [id number] Interpreted by: CAREY LOOMIS MD Electronically signed by: Comments NAME: LOLIS HAMILTON [facility] REC#: [id number] PT STATUS: REG ER : 1935 PHYSICIAN: SHERRY ROTHMAN MD ADMIT DATE: 09/12/20/ER FS Draft Date of Exam:09/12/20 CT ABDOMEN/PELVIS W PROCEDURE: CT abdomen and pelvis with contrast. TECHNIQUE: Multiple contiguous axial images were obtained through the abdomen and pelvis after administration of intravenous contrast. Auto Exposure Controls were utilized during the CT exam to meet ALARA standards for radiation dose reduction. All CT scans use one or more of the following dose optimizing techniques: automated exposure control, MA and/or KvP adjustment based on patient size and exam type or iterative reconstruction. INDICATION: Bright red blood per rectum. History of diverticulitis. COMPARISON: None FINDINGS: There is significant motion artifact during the exam. The lung bases demonstrate no focal consolidation. The heart is mildly large. There is calcific atherosclerosis. The liver has a near the valarie hepatis measuring less than a centimeter in size which is too small to characterize. Small hyperdensities are seen in the superior liver as well, most likely cysts. Cholecystectomy clips are noted. The spleen appears normal. The pancreas is unremarkable. The adrenal glands appear normal. There is a large cyst in the right kidney which measures 9.8 cm in size. Additional smaller cysts are seen in the kidneys bilaterally. The bowel loops are nondistended without obstruction. There is extensive diverticulosis in the descending and sigmoid colon. Mild wall thickening of the descending and sigmoid colon is likely due to decompression and there is no significant surrounding edema. There is a small fat-containing left inguinal hernia. There is a right hip arthroplasty. No acute osseous abnormality is seen. IMPRESSION: 1. Extensive diverticulosis in the distal colon. Mild wall thickening in the distal colon is thought to be due to nondistention rather than a diverticulitis or colitis although mild inflammation is difficult to exclude. 2. Multiple renal cysts bilaterally, largest on the right measuring up to 9.8 cm. 3. Significant motion artifact throughout the examination. Dictated on workstation # [id number] Dict: 09/12/20 0731 Trans: 09/12/20 0741 [id number] Interpreted by: CAREY LOOMIS MD Electronically signed by: (ZHENG SANDS MD) Transfer of Care Time: 07:02 Care transferred to: Dr Sands (SHERRY ROTHMAN) Departure Communication (Admissions) Time/Spoke to Admitting Phy: 07:[address] Rai the on-call doctor for [facility]. Will admit as an observation patient to the cardiac stepdown unit and monitor blood count. Consult Dr. Cobian from surgery since he has seen the patient before. Time/Spoke to Consulting Phy: 08:[address] Cobian and updated him about the admission. He states he will see the patient in consult (ZHENG SANDS MD) Impression Primary Impression: Acute lower gastrointestinal bleeding Additional Impression: Syncope Qualified Codes: R55 - Syncope and collapse Disposition: 30 STILL A PATIENT Condition: Critical Admissions Decision to Admit Reason: Admit from ER (General) Decision to Admit/Date: Sep 12, 2020 Time/Decision to Admit Time: 07:59 (ZHENG SANDS MD) Departure-Patient Inst. Referrals: DEREK PAUL MD (PCP/Family) Primary Care Physician SHERRY ROTHMAN Sep 12, 2020 05:53 ZHENG SANDS MD Sep 12, 2020 07:27
[2020-09-12 06:24] LABS: BASOPHILS % (AUTO) 1 % (0-10); EOSINOPHILS % (AUTO) 3 % (0-10); HEMATOCRIT 38 % (40-54); HEMOGLOBIN 12.5 G/DL (13.3-17.7); LYMPHOCYTES % (AUTO) 28 % (12-44); MEAN CORPUSCULAR HEMOGLOBIN 31 PG (25-34); MEAN CORPUSCULAR HGB CONC 33 G/DL (32-36); MEAN CORPUSCULAR VOLUME 94 FL (80-99); MEAN PLATELET VOLUME 13.7 FL (7.4-10.4); MONOCYTES % (AUTO) 8 % (0-12); NEUTROPHILS % (AUTO) 60 % (42-75); PLATELET COUNT 162 10^3/uL (130-400)
[2020-09-12 06:25] LABS: BASOPHILS # (AUTO) 0.1 10^3/uL (0.0-0.1); EOSINOPHILS # (AUTO) 0.3 10^3/uL (0.0-0.3); LYMPHOCYTES # (AUTO) 3.3 X 10^3 (1.0-4.0); MONOCYTES # (AUTO) 0.9 X 10^3 (0.0-1.0); NEUTROPHILS # (AUTO) 7.1 X 10^3 (1.8-7.8); WHITE BLOOD COUNT 11.8 10^3/uL (4.3-11.0)
[2020-09-12 06:37] LABS: BUN/CREATININE RATIO 21; CARBON DIOXIDE 24 MMOL/L (21-32); CHLORIDE 106 MMOL/L (98-107); CREATININE SERUM 1.26 MG/DL (0.60-1.30); GFR ESTIMATED 55; GLUCOSE 169 MG/DL (70-105); POTASSIUM 3.9 MMOL/L (3.6-5.0); SODIUM 142 MMOL/L (135-145)
[2020-09-12 06:38] LABS: ALANINE AMINOTRANSFERASE 24 U/L (0-55); ALKALINE PHOSPHATASE 42 U/L (40-136); CALCIUM 8.6 MG/DL (8.5-10.1)
[2020-09-12 06:39] LABS: ALBUMIN 3.7 GM/DL (3.2-4.5); LIPASE 29 U/L (8-78); TOTAL PROTEIN 6.3 GM/DL (6.4-8.2)
[2020-09-12] MEDS ORDERED: NS 100 ML (IVPB) BAG IV ONE (07:30)
[2020-09-12] MEDS ORDERED: IOHEXOL 350 MG/ML 100 ML (OMNIPAQUE 350) VIAL IV ONE (07:30)
[2020-09-12] MEDS ORDERED: CATHETER FLUSH 10 ML SYR IV PRN (07:30)
[2020-09-12] MEDS ORDERED: HOLD METFORMIN - RECEIVED CONTRAST 20 ML VIAL IV SCH (07:30)
--- NOTE | 2020-09-12 07:33 | Diagnostic Imaging Report ---
PROCEDURE: CT head and CT cervical spine without contrast. TECHNIQUE: Multiple contiguous axial images were obtained through the brain and cervical spine without the use of intravenous contrast. Sagittal and coronal reformations through the cervical spine were then performed. Auto Exposure Controls were utilized during the CT exam to meet ALARA standards for radiation dose reduction. INDICATION: Syncope, fall, bloody stools COMPARISON: None FINDINGS: CT HEAD: A cochlear implant is noted on the left, causing significant streak artifact. There is generalized parenchymal volume loss. There is no midline shift or mass effect. No acute intracranial hemorrhage is seen. There is no CT evidence of acute territorial ischemia. The calvarium appears intact. There is mild motion artifact. Visualized paranasal sinuses appear clear. CT CERVICAL SPINE: There is advanced degenerative change in the cervical spine at C5-C6 and C6-C7. Mild degenerative changes are seen elsewhere. No acute fracture is seen in the cervical spine. No bony fragments or hyperdense fluid collections are seen in the spinal canal. There is spinal canal narrowing at C5-C6 and C6-C7 due to the degenerative change. Soft tissues about the cervical spine demonstrate no acute abnormality. IMPRESSION: 1. No acute intracranial hemorrhage or CT evidence of acute territorial ischemia. 2. Degenerative changes in the cervical spine with no acute fracture seen. Dictated by: Dictated on workstation # [id number]
--- NOTE | 2020-09-12 07:42 | Diagnostic Imaging Report ---
PROCEDURE: CT abdomen and pelvis with contrast. TECHNIQUE: Multiple contiguous axial images were obtained through the abdomen and pelvis after administration of intravenous contrast. Auto Exposure Controls were utilized during the CT exam to meet ALARA standards for radiation dose reduction. All CT scans use one or more of the following dose optimizing techniques: automated exposure control, MA and/or KvP adjustment based on patient size and exam type or iterative reconstruction. INDICATION: Bright red blood per rectum. History of diverticulitis. COMPARISON: None FINDINGS: There is significant motion artifact during the exam. The lung bases demonstrate no focal consolidation. The heart is mildly large. There is calcific atherosclerosis. The liver has a near the valarie hepatis measuring less than a centimeter in size which is too small to characterize. Small hyperdensities are seen in the superior liver as well, most likely cysts. Cholecystectomy clips are noted. The spleen appears normal. The pancreas is unremarkable. The adrenal glands appear normal. There is a large cyst in the right kidney which measures 9.8 cm in size. Additional smaller cysts are seen in the kidneys bilaterally. The bowel loops are nondistended without obstruction. There is extensive diverticulosis in the descending and sigmoid colon. Mild wall thickening of the descending and sigmoid colon is likely due to decompression and there is no significant surrounding edema. There is a small fat-containing left inguinal hernia. There is a right hip arthroplasty. No acute osseous abnormality is seen. IMPRESSION: 1. Extensive diverticulosis in the distal colon. Mild wall thickening in the distal colon is thought to be due to nondistention rather than a diverticulitis or colitis although mild inflammation is difficult to exclude. 2. Multiple renal cysts bilaterally, largest on the right measuring up to 9.8 cm. 3. Significant motion artifact throughout the examination. Dictated by: Dictated on workstation # [id number]
[2020-09-12 08:32] LABS: HEMOGLOBIN 11.9 G/DL (13.3-17.7)
[2020-09-12] MEDS: NS IV 1000 ML 1,000 ML IV SCH ×2 (10:41→20:07)
--- NOTE | 2020-09-12 11:46 | Consultation - Surgery ---
PILO TAMAYO MED STUDENT 09/12/20 1146: History of Present Illness History of Present Illness Patient Consulted On(bj/time) 09/12/20 08:05 Date Seen by Provider: Sep 12, 2020 Time Seen by Provider: 11:19 History of Present Illness Kalen Zhu is a 85 yo M who presents with complaint of rectal bleeding and syncope. The patient notes he tries to avoid red meats but the past 2 days had steak and ham. He states he had dark blood mixed in with his stools when having bowel movements beginning last night. Kalen reports 7 or 8 bowel movements at home, all of which had dark blood, and states he felt lightheaded after his last one and fell to the ground onto his right side without hitting his head. He was brought to [facility] ED via EMS after family found him unconscious. The patient denies abdominal pain, diarrhea, constipation, nausea, vomiting, chest pain, SOB, fever, and chills. He says he also felt lightheaded after another bowel movement in the icu, but felt better when lying back down. Besides these incidents, Kalen denies lightheadedness. He reports the bleeding is similar to his two prior experiences, except that the blood is darker. Allergies and Home Medications Allergies Coded Allergies: amoxicillin (Unverified Allergy, Unknown, 09/12/20) states morphine (Verified Adverse Reaction, Unknown, 11/11/18) Home Medications Aspirin 81 Mg Tablet.dr, 81 MG PO HS, (Reported) Last Action: Reviewed Atorvastatin Calcium 40 Mg Tablet, 40 MG PO HS, (Reported) Last Action: Reviewed Fish Oil/Dha/Epa 1 Each Capsule, 1 EACH PO DAILY, (Reported) Last Action: Reviewed Hydrochlorothiazide 12.5 Mg Tablet, 12.5 MG PO DAILY, (Reported) Last Action: Reviewed Multivits,Stress Formula 1 Each Tablet, 1 EACH PO DAILY, (Reported) Last Action: Reviewed Past Iaflrbv-Xwoiqg-Xzgrnz Hx Patient Social History Drug of Choice: Denies Smoking Status: Never a Smoker 2nd Hand Smoke Exposure: No Recent Hopitalizations: No Alcohol Use?: No Have you traveled recently?: No Immunizations Up To Date Date of Pneumonia Vaccine: Jul 18, 2018 Date of Influenza Vaccine: Mar 14, 2020 Seasonal Allergies Seasonal Allergies: No Surgeries History of Surgeries: Yes (right hip replacement) Surgeries: Appendectomy, CABG, Gallbladder (age 18), Joint Replacement Respiratory History of Respiratory Disorde: No Cardiovascular History of Cardiac Disorders: Yes (stents x3, quad bypass 2014) Cardiac Disorders: Coronary Artery Disease, High Cholesterol Neurological History of Neurological Disord: No Genitourinary History of Genitourinary Disor: No Gastrointestinal History of Gastrointestinal Di: Yes (rectal bleeding) Gastrointestinal Disorders: Ulcer Musculoskeletal History of Musculoskeletal Dis: No Musculoskeletal Disorders: Arthritis Endocrine History of Endocrine Disorders: No HEENT History of HEENT Disorders: Yes Loss of Vision: Denies Hearing Impairment: Hard of Hearing, Hearing Aide Right, Hearing Aide Left Cancer History of Cancer: No Psychosocial History of Psychiatric Problem: No Integumentary History of Skin or Integumenta: No Blood Transfusions History of Blood Disorders: No Family Medical History Significant Family History: DVT/PE, Other Conditions/Hx Family Medial History: Blood clots G8 SISTER Review of Systems-General Constitutional: No chills, No fever EENTM: hearing loss (chronic; has cochlear implant); No eye pain, No vision loss Respiratory: No cough, No short of breath Cardiovascular: No chest pain, No palpitations Gastrointestinal: No abdominal pain, No constipation, No diarrhea, No nausea, No vomiting Genitourinary: No dysuria, No frequency Musculoskeletal: No back pain, No muscle pain, No neck pain Skin: No pruritus, No rash Psychiatric/Neurological: Denies Numbness, Denies Paresthesia; Weakness (denies currently. Temporary weakness after a few of his bms) All Other Systems Reviewed Negative Unless Noted: Yes Physical Exam-General Problems Physical Exam Vital Signs Vital Signs - First Documented 09/12/20 05:38 Temp 36.2 Pulse 63 Resp 16 B/P (MAP) 166/86 (112) Pulse Ox 98 O2 Delivery Room Air Capillary Refill : Less Than 3 Seconds General Appearance: WD/WN, no apparent distress HEENT: PERRL/EOMI Neck: full range of motion, normal inspection Respiratory: chest non-tender, lungs clear, normal breath sounds, no respiratory distress, no accessory muscle use Cardiovascular: regular rate, rhythm, no edema, no JVD, no murmur, gallop/S3 Gastrointestinal: non tender, soft, abnormal bowel sounds (hyperactive); No distended, No guarding, No rebound Extremities: normal range of motion, non-tender, normal inspection, no pedal edema Neurologic/Psychiatric: alert, normal mood/affect, oriented x 3 Skin: normal color, warm/dry Lymphatic: no adenopathy (cervical) Data Review Labs Laboratory Tests 09/12/20 05:42: White Blood Count 11.8H, Red Blood Count 4.04L, Hemoglobin 12.5L, Hematocrit 38L , Mean Corpuscular Volume 94, Mean Corpuscular Hemoglobin 31, Mean Corpuscular Hemoglobin Concent 33, Red Cell Distribution Width 13.0, Platelet Count 162, Mean Platelet Volume 13.7H, Immature Granulocyte % (Auto) 0, Neutrophils (%) (Auto) 60, Lymphocytes (%) (Auto) 28, Monocytes (%) (Auto) 8, Eosinophils (%) (Auto) 3, Basophils (%) (Auto) 1, Neutrophils # (Auto) 7.1, Lymphocytes # (Auto) 3.3, Monocytes # (Auto) 0.9, Eosinophils # (Auto) 0.3, Basophils # (Auto) 0.1, Immature Granulocyte # (Auto) 0.0, Sodium Level 142, Potassium Level 3.9, Chloride Level 106, Carbon Dioxide Level 24, Anion Gap 12, Blood Urea Nitrogen 27H, Creatinine 1.26, Estimat Glomerular Filtration Rate 55, BUN/Creatinine Ratio 21, Glucose Level 169H, Calcium Level 8.6, Corrected Calcium 8.8, Total Bilirubin 1.0, Aspartate Amino Transf (AST/SGOT) 25, Alanine Aminotransferase (ALT/SGPT) 24, Alkaline Phosphatase 42, Troponin I < 0.30, C-Reactive Protein < 0.30, Pro-B-Type Natriuretic Peptide 188.5H, Total Protein 6.3L, Albumin 3.7, Lipase 29 09/12/20 08:20: Hemoglobin 11.9L, Hematocrit 37L Assessment/Plan Assessment/Plan Assessment/Plan red blood per rectum -patient states blood is dark red. Spoke to SHAKE OUT WORKER, who states she saw bm with bright red blood and dark non-tarry stool. -denies current or past heartburn lightheadedness x2 episodes, syncope x1 -CT head and cervical spine negative for ICH and fracture -denies lightheadedness at rest. creatinine currently 1.26, prior values in hospital range 1.05-1.25 history diverticular disease, prior diverticular bleeds history quadruple bypass plan per medical student: monitor hemoglobin and hematocrit transfuse if HGB <8 continue IV fluids, cardiac telemetry Protonix 40mg QD in hospital colonoscopy either in-hospital or outpatient, preferably after bleeding slows down ROSASHEY HICKMAN DO 09/12/20 1623: History of Present Illness History of Present Illness Time Seen by Provider: 13:43 History of Present Illness Surgery asked to consult regardind GI bleed. HPI per ED: Patient presents ER by EMS from home with chief complaint that he was going to the bathroom and when he went to stand up he says he passed out. EMS remarks he was quite confused and did not answer questions appropriately but did speak and said over and over that he wanted help and he was cold. He has been having some bright red blood per stool and states he has been fighting a case of recurrent diverticulitis. He has not been on antibiotics recently. He is a patient of Dr. Ambrosio. No fevers nausea chills cough shortness of air or chest pain. Patient had colonoscopy by Dr. Gordon December 2019, 8 months ago. Found a bleeding bright red diverticulum about 40 cm in but loss of position. Suctioned about 600 mL of sanguinous fluid. EGD the day prior by Dr. Gordon demonstrated a hiatal hernia but no blood or ulcers or other adventitious findings. Patient is not presently on blood thinners, just aspirin 81 mg daily. History of appendectomy, cholecystectomy. Cochlear implant. When I saw pt this afternoon, he stated he was feeling ok but still having bloody BM's. He thinks they have slowed down a little. Allergies and Home Medications Allergies Coded Allergies: amoxicillin (Unverified Allergy, Unknown, 09/12/20) states morphine (Verified Adverse Reaction, Unknown, 11/11/18) Home Medications Aspirin 81 Mg Tablet.dr, 81 MG PO HS, (Reported) Last Action: Reviewed Atorvastatin Calcium 40 Mg Tablet, 40 MG PO HS, (Reported) Last Action: Reviewed Fish Oil/Dha/Epa 1 Each Capsule, 1 EACH PO DAILY, (Reported) Last Action: Reviewed Hydrochlorothiazide 12.5 Mg Tablet, 12.5 MG PO DAILY, (Reported) Last Action: Reviewed Multivits,Stress Formula 1 Each Tablet, 1 EACH PO DAILY, (Reported) Last Action: Reviewed Patient Home Medication List Home Medication List Reviewed: Yes Past Zrqofxi-Qsuidk-Hwdboj Hx Patient Social History Smoking Status: Never a Smoker Alcohol Use?: Yes Surgeries History of Surgeries: Yes Surgeries: Appendectomy, CABG, Gallbladder (age 18), Joint Replacement Respiratory History of Respiratory Disorde: No Cardiovascular History of Cardiac Disorders: Yes Cardiac Disorders: Coronary Artery Disease Neurological History of Neurological Disord: No Genitourinary History of Genitourinary Disor: No Gastrointestinal History of Gastrointestinal Di: Yes Gastrointestinal Disorders: Gastrointestinal Bleed, Hiatal Hernia, Gall Bladder Disease Musculoskeletal Musculoskeletal Disorders: Arthritis Endocrine History of Endocrine Disorders: No HEENT History of HEENT Disorders: Yes HEENT Disorders: Cataract Loss of Vision: Bilateral Hearing Impairment: Hard of Hearing Cancer History of Cancer: No Psychosocial History of Psychiatric Problem: No Family Medical History Significant Family History: Other Conditions/Hx (Sister had blood clots) Family Medial History: Blood clots G8 SISTER Review of Systems-General Constitutional: No chills, No fever EENTM: hearing loss (chronic; has cochlear implant); No eye pain, No vision loss Respiratory: No cough, No short of breath Cardiovascular: No chest pain; Hx of Intervention; No palpitations; syncope, vascular heart diseas Gastrointestinal: No abdominal pain, No constipation, No diarrhea, No nausea, No vomiting; other (hematochezia) Genitourinary: No dysuria, No frequency Musculoskeletal: No back pain, No muscle pain, No neck pain Skin: No pruritus, No rash Psychiatric/Neurological: Denies Anxiety, Denies Depressed, Denies Numbness, Denies Paresthesia; Weakness (denies currently. Temporary weakness after a few of his bms) Other Pt denies any hx of abnormal bleeding or bruising Physical Exam-General Problems Physical Exam General Appearance: WD/WN, no apparent distress Eyes: Bilateral Eye PERRL, Bilateral Eye EOMI HEENT: pharynx normal; No scleral icterus (R), No scleral icterus (L) Neck: full range of motion, normal inspection Respiratory: chest non-tender, lungs clear, normal breath sounds, no respiratory distress, no accessory muscle use Cardiovascular: regular rate, rhythm, gallop/S3 Gastrointestinal: non tender, soft, abnormal bowel sounds (hyperactive); No distended, No guarding, No rebound Back: no CVA tenderness, no vertebral tenderness Extremities: non-tender, normal inspection, no pedal edema, no calf tenderness Neurologic/Psychiatric: director volunteer services II-XII nml as tested, alert, normal mood/affect, oriented x 3 Skin: normal color, warm/dry Lymphatic: no adenopathy (neck, axilla or groin) Data Review Radiology Date of Exam:09/12/20 CT ABDOMEN/PELVIS W PROCEDURE: CT abdomen and pelvis with contrast. TECHNIQUE: Multiple contiguous axial images were obtained through the abdomen and pelvis after administration of intravenous contrast. Auto Exposure Controls were utilized during the CT exam to meet ALARA standards for radiation dose reduction. All CT scans use one or more of the following dose optimizing techniques: automated exposure control, MA and/or KvP adjustment based on patient size and exam type or iterative reconstruction. INDICATION: Bright red blood per rectum. History of diverticulitis. COMPARISON: None FINDINGS: There is significant motion artifact during the exam. The lung bases demonstrate no focal consolidation. The heart is mildly large. There is calcific atherosclerosis. The liver has a near the valarie hepatis measuring less than a centimeter in size which is too small to characterize. Small hyperdensities are seen in the superior liver as well, most likely cysts. Cholecystectomy clips are noted. The spleen appears normal. The pancreas is unremarkable. The adrenal glands appear normal. There is a large cyst in the right kidney which measures 9.8 cm in size. Additional smaller cysts are seen in the kidneys bilaterally. The bowel loops are nondistended without obstruction. There is extensive diverticulosis in the descending and sigmoid colon. Mild wall thickening of the descending and sigmoid colon is likely due to decompression and there is no significant surrounding edema. There is a small fat-containing left inguinal hernia. There is a right hip arthroplasty. No acute osseous abnormality is seen. IMPRESSION: 1. Extensive diverticulosis in the distal colon. Mild wall thickening in the distal colon is thought to be due to nondistention rather than a diverticulitis or colitis although mild inflammation is difficult to exclude. 2. Multiple renal cysts bilaterally, largest on the right measuring up to 9.8 cm. 3. Significant motion artifact throughout the examination. Dictated by: Dictated on workstation # [id number] Dict: 09/12/2031 Trans: 09/12/20825 [id number] Interpreted by: CAREY LOOMIS MD Electronically signed by: CAREY LOOMIS MD 09/12/20825 Assessment/Plan Assessment/Plan Assessment/Plan Bright red blood per rectum -patient states it is starting to come out dark red. Spoke to SHAKE OUT WORKER, who states she saw bm with bright red blood and dark non-tarry stool. -denies current or past heartburn lightheadedness x2 episodes, syncope x1 -CT head and cervical spine negative for ICH and fracture -denies lightheadedness at rest. creatinine currently 1.26, prior values in hospital range 1.05-1.25 history diverticular disease, prior diverticular bleeds history quadruple bypass PLAN monitor hemoglobin and hematocrit, transfuse if HGB <8, continue IV fluids, cardiac telemetry, Protonix 40mg QD in hospital. May be able to do enemas and then check Left portion of colon for bleeding; if the bleeding continues or the Hg drops a lot. Could possibly do colonoscopy as outpatient. Supervisory-Addendum Brief Verification & Attestation Participated in pt care: history, MDM, physical Personally performed: exam, history, MDM Care discussed with: Medical Student Procedures: n/a Verification and Attestation of Medical Student E/M Service A medical student performed and documented this service. I then reviewed and verified all information documented by the medical student and made modifications to such information, when appropriate. I personally performed a physical exam, medical decision making and then discussed any differences between the notes and made revisions as necessary to create one note. Shey Gordon , 09/12/20 , 16:28 PILO TAMAYO MED STUDENT Sep 12, 2020 11:46 SHEY GORDON DO Sep 12, 2020 16:23
[2020-09-12 12:22] LABS: HEMOGLOBIN 11.3 g/dL (13.3-17.7)
--- NOTE | 2020-09-12 12:42 | History & Physical ---
HPI History of Present Illness: 85 yo male came to ER due to dark stools starting last night, had a few episodes and felt lightheaded. He reports a fall, but on further notes from daughter it had happened the day prior. He denies bright red blood per rectum, although he did have that occur in the past. He has been eating a little more red meat in th e last few days, but in general tries to avoid foods that might trigger problems. He did have some abdominal discomfort with the episodes, but none now. Date seen by provider: Sep 12, 2020 Time Seen by Provider: 10:15 Attending Physician Enrike Rai MD PCP Self,[facility] Consult Date of Admission Sep 12, 2020 at 09:48 Home Medications Home Medications Reviewed patient Home Medication Reconciliation performed by pharmacy medication reconciliations geoscience laboratory technician and/or nursing. Patients Allergies have been reviewed. Allergies Coded Allergies: amoxicillin (Unverified Allergy, Unknown, 09/12/20) states morphine (Verified Adverse Reaction, Unknown, 11/11/18) MRE-Nsqzdl-Ofqgtj Hx Patient Social History Drug of Choice: Denies Smoking Status: Never a Smoker 2nd Hand Smoke Exposure: No Recent Hopitalizations: No Alcohol Use?: No Have you traveled recently?: No Immunizations Up To Date Date of Pneumonia Vaccine: Jul 18, 2018 Date of Influenza Vaccine: Mar 14, 2020 Past Medical History PMHx: Diverticulitis Duodenal ulcer Hypertension SurgHx: Appendectomy Cholecystectomy Hip replacement Heart surgery of unclear type Family Medical History Significant Family History: DVT/PE, Other Conditions/Hx Family History: Blood clots G8 SISTER Review of Systems ([facility]) Constitutional: No chills, No fever EENTM: No nose congestion Respiratory: No cough, No short of breath Cardiovascular: No chest pain, No palpitations Gastrointestinal: see HPI; No nausea, No vomiting Genitourinary: No dysuria, No frequency Skin: No rash Psychiatric/Neurological: Denies Headache Reviewed Test Results Reviewed Test Results Lab Laboratory Tests Test 09/12/20 05:42 09/12/20 08:20 09/12/20 12:15 Range/Units White Blood Count 11.8 H 4.3-11.0 10^3/uL Red Blood Count 4.04 L 4.35-5.85 10^6/uL Hemoglobin 12.5 L 11.9 L 11.3 L 13.3-17.7 g/dL Hematocrit 38 L 37 L 35 L 40-54 % Mean Corpuscular Volume 94 80-99 FL Mean Corpuscular Hemoglobin 31 25-34 PG Mean Corpuscular Hemoglobin Concent 33 32-36 G/DL Red Cell Distribution Width 13.0 10.0-14.5 % Platelet Count 162 130-400 10^3/uL Mean Platelet Volume 13.7 H 7.4-10.4 FL Immature Granulocyte % (Auto) 0 % Neutrophils (%) (Auto) 60 42-75 % Lymphocytes (%) (Auto) 28 12-44 % Monocytes (%) (Auto) 8 0-12 % Eosinophils (%) (Auto) 3 0-10 % Basophils (%) (Auto) 1 0-10 % Neutrophils # (Auto) 7.1 1.8-7.8 X 10^3 Lymphocytes # (Auto) 3.3 1.0-4.0 X 10^3 Monocytes # (Auto) 0.9 0.0-1.0 X 10^3 Eosinophils # (Auto) 0.3 0.0-0.3 10^3/uL Basophils # (Auto) 0.1 0.0-0.1 10^3/uL Immature Granulocyte # (Auto) 0.0 0.0-0.1 10^3/uL Sodium Level 142 135-145 MMOL/L Potassium Level 3.9 3.6-5.0 MMOL/L Chloride Level 106 98-107 MMOL/L Carbon Dioxide Level 24 21-32 MMOL/L Anion Gap 12 5-14 MMOL/L Blood Urea Nitrogen 27 H 7-18 MG/DL Creatinine 1.26 0.60-1.30 MG/DL Estimat Glomerular Filtration Rate 55 BUN/Creatinine Ratio 21 Glucose Level 169 H 70-105 MG/DL Calcium Level 8.6 8.5-10.1 MG/DL Corrected Calcium 8.8 8.5-10.1 MG/DL Total Bilirubin 1.0 0.1-1.0 MG/DL Aspartate Amino Transf (AST/SGOT) 25 5-34 U/L Alanine Aminotransferase (ALT/SGPT) 24 0-55 U/L Alkaline Phosphatase 42 40-136 U/L Troponin I < 0.30 <0.30 NG/ML C-Reactive Protein < 0.30 <0.50 MG/DL Pro-B-Type Natriuretic Peptide 188.5 H <75.0 PG/ML Total Protein 6.3 L 6.4-8.2 GM/DL Albumin 3.7 3.2-4.5 GM/DL Lipase 29 8-78 U/L Radiology CT abd/pelvis: IMPRESSION: 1. Extensive diverticulosis in the distal colon. Mild wall thickening in the d istal colon is thought to be due to nondistention rather than a diverticulitis or colitis although mild inflammation is difficult to exclude. 2. Multiple renal cysts bilaterally, largest on the right measuring up to 9.8 cm. 3. Significant motion artifact throughout the examination. Physical Exam-([facility]) Physical Exam Vital Signs VS - Last 72 Hours, by Label 09/12/20 09/12/20 09/12/20 09/12/20 05:38 09:45 09:50 09:56 Temp 36.2 Pulse 63 85 Resp 16 B/P (MAP) 166/86 (112) 181/102 (128) Pulse Ox 98 98 O2 Delivery Room Air Room Air Room Air 09/12/20 09/12/20 09/12/20 09/12/20 12:00 12:00 12:45 13:15 Temp 36.6 Pulse 79 82 84 85 Resp 21 18 11 B/P (MAP) 136/74 (94) 141/88 (105) 141/86 (104) Pulse Ox 96 95 98 O2 Delivery Room Air Room Air Room Air 09/12/20 14:00 Pulse Ox 98 O2 Delivery Room Air Capillary Refill : Less Than 3 Seconds General Appearance: WD/WN, no apparent distress Respiratory: lungs clear, normal breath sounds Cardiovascular: regular rate, rhythm, no murmur Gastrointestinal: normal bowel sounds, non tender, soft Extremities: no pedal edema Neurologic/Psychiatric: alert, normal mood/affect, other (baseline hearing loss) Skin: normal color, warm/dry Assessment/Plan Assessment/Plan Admission Status: Observation (1) Diverticulosis Status: Chronic Assessment & Plan: CT without clear evidence of inflammation, monitor CBC and vitals. (2) GI bleed Status: Acute Assessment & Plan: Suspect if he has active bleeding it is slow, will consult Surgery and monitor hemoglobin and hematocrit. Qualifiers: Qualified Codes: K57.91 - Diverticulosis of intestine, part unspecified, without perforation or abscess with bleeding (3) Hypertension Status: Chronic Assessment & Plan: Resume home medications Qualifiers: Qualified Codes: I10 - Essential (primary) hypertension (4) Syncope Status: Acute Assessment & Plan: CT head without significant findings, unclear if he had presyncope vs syncope. Monitor on telemetry. 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 ENRIKE RAI MD Sep 12, 2020 12:42
[2020-09-12] MEDS ORDERED: FISH1CAP15 PO (13:06)
[2020-09-12] MEDS ORDERED: MULT-10 PO (13:06)
[2020-09-12] MEDS ORDERED: ATOR40TA70 PO (13:06)
[2020-09-12] MEDS: PANTOPRAZOLE 40 MG (PROTONIX) TAB PO SCH (18:00)
[2020-09-12] MEDS: MELATONIN 3 MG TABLET PO SCH (20:07)
[2020-09-12] MEDS ORDERED: lisINopril 20 MG (PRINIVIL) TABLET PO SCH (21:00)
[2020-09-13 00:59] LABS: HEMOGLOBIN 9.2 g/dL (13.3-17.7)
[2020-09-13 02:05] LABS: MEAN PLATELET VOLUME 13.7 FL (7.4-10.4); WHITE BLOOD COUNT 12.5 10^3/uL (4.3-11.0)
[2020-09-13 02:12] LABS: BUN/CREATININE RATIO 26; CALCIUM 7.9 MG/DL (8.5-10.1); CARBON DIOXIDE 23 MMOL/L (21-32); CHLORIDE 107 MMOL/L (98-107); CREATININE SERUM 0.96 MG/DL (0.60-1.30); GFR ESTIMATED > 60; GLUCOSE 102 MG/DL (70-105); POTASSIUM 3.5 MMOL/L (3.6-5.0); SODIUM 140 MMOL/L (135-145)
[2020-09-13 04:01] LABS: HEMOGLOBIN 9.4 g/dL (13.3-17.7)
[2020-09-13] MEDS: NS IV 1000 ML 1,000 ML IV SCH ×3 (06:52→21:11)
[2020-09-13] MEDS ORDERED: FLEET ENEMA ADULT 1 EA BTL PR ONE (07:15)
[2020-09-13] MEDS: POTASSIUM CL 10MEQ/50ML IVPB 50 ML IV SCH ×2 (08:24→10:23)
[2020-09-13] MEDS: PANTOPRAZOLE 40 MG (PROTONIX) TAB PO SCH (08:24)
--- NOTE | 2020-09-13 08:58 | Progress Note - Surgery ---
Subjective Time Seen by a Provider: 07:01 Subjective/Events-last exam Pt seen and examined, states he feels good and thinks the bleeding is slowing down; but still had some blood in with BM. Denies abd pain, nausea or vomiting. Review of Systems General: No Fatigue HEENT: No Head Aches Pulmonary: No Dyspnea, No Cough Cardiovascular: No: Chest Pain, Palpitations Gastrointestinal: No: Nausea, Vomiting, Abdominal Pain Objective Exam Vital Signs Date Time Temp Pulse Resp B/P (MAP) Pulse Ox O2 Delivery O2 Flow Rate FiO2 09/13/20 07:57 36.2 68 18 128/70 (89) 95 Room Air 09/13/20 06:49 70 09/13/20 03:27 36.5 76 16 114/57 (76) 95 Room Air 09/13/20 01:00 68 09/13/20 00:42 36.6 68 16 146/82 (103) 96 Room Air 09/12/20 21:55 16 128/65 (86) Room Air 09/12/20 20:14 98 Room Air 09/12/20 20:11 75 09/12/20 19:47 73 18 152/83 (106) 94 Room Air 09/12/20 19:35 37.0 09/12/20 18:34 98 Room Air 09/12/20 16:32 36.8 09/12/20 15:45 84 26 139/78 (98) 95 Room Air 09/12/20 14:00 98 Room Air 09/12/20 13:15 85 11 141/86 (104) 98 Room Air 09/12/20 12:45 84 09/12/20 12:00 36.6 82 18 141/88 (105) 95 Room Air 09/12/20 12:00 79 21 136/74 (94) 96 Room Air 09/12/20 09:56 85 09/12/20 09:50 98 Room Air 09/12/20 09:45 181/102 (128) Room Air I & O 09/13/20 07:00 Intake Total 740 ml Output Total 150 ml Balance 590 ml Capillary Refill : Less Than 3 Seconds General Appearance: No Apparent Distress, WD/WN HEENT: PERRL/EOMI (3 mm reactive symmetric); No Moist Mucous Membranes Respiratory: Lungs Clear, Normal Breath Sounds, No Accessory Muscle Use, No Respiratory Distress Cardiovascular: Regular Rate, Rhythm, No Edema, Normal Peripheral Pulses Gastrointestinal: non tender, soft, no organomegaly; No distended Extremity: No Calf Tenderness Neurologic/Psychiatric: Alert, Oriented x3, Other (Anxious affect) Skin: Normal Color, Warm/Dry Results Lab Laboratory Tests 09/12/20 12:15: Hemoglobin 11.3L, Hematocrit 35L 09/12/20 16:02: Hemoglobin 11.0L, Hematocrit 35L 09/12/20 20:00: Hemoglobin 11.0L, Hematocrit 34L 09/13/20 00:43: Hemoglobin 9.2L, Hematocrit 30L, White Blood Count 12.5H, Red Blood Count 3.04L, Mean Corpuscular Volume 97, Mean Corpuscular Hemoglobin 30, Mean Corpuscular Hemoglobin Concent 31L, Red Cell Distribution Width 13.1, Platelet Count 134, Mean Platelet Volume 13.7H, Sodium Level 140, Potassium Level 3.5L, Chloride Level 107, Carbon Dioxide Level 23, Anion Gap 10, Blood Urea Nitrogen 25H, Creatinine 0.96, Estimat Glomerular Filtration Rate > 60, BUN/Creatinine Ratio 26, Glucose Level 102, Calcium Level 7.9L 09/13/20 03:55: Hemoglobin 9.4L, Hematocrit 29L Assessment/Plan Assessment/Plan Assessment/Plan Bright red blood per rectum -patient states it is starting to come out dark red. Syncope at home, nothing since he has been in hospital. History diverticular disease, prior diverticular bleeds -his Hg has dropped, but he may have stopped bleeding or is stopping. Will try enemas and plan to do a flex sig today to look for bleeding SHEY GORDON DO Sep 13, 2020 08:58
[2020-09-13] MEDS ORDERED: NON-FORMULARY MEDICATION 1 EA EA (Hydrochlorothiazide 12.5 MG) PO SCH (09:00)
[2020-09-13] MEDS: FLEET ENEMA ADULT 1 EA BTL PR PRN ×2 (10:19→12:06)
[2020-09-13] MEDS ORDERED: LACTATED RINGERS 1,000 ML IV ONE ×2 (13:03→14:30)
[2020-09-13] MEDS ORDERED: proPOfol 200 MG/20 ML (DIPRIVAN) VIAL IV ONE (13:36)
[2020-09-13 14:35] VITALS: BP 145/68
--- NOTE | 2020-09-13 14:36 | Anesthesia-General Post-Op ---
MAC Patient Condition Mental Status/LOC: Same as Preop Cardiovascular: Satisfactory Nausea/Vomiting: Absent Respiratory: Satisfactory Pain: Controlled Complications: Absent Post Op Complications Complications None Follow Up Care/Instructions Patient Instructions None needed. Anesthesiology Discharge Order Discharge Order Patient is doing well, no complaints, stable vital signs, no apparent adverse anesthesia problems. No complications reported per nursing. ANJU YANEZ CRNA Sep 13, 2020 14:36
--- NOTE | 2020-09-13 15:24 | Progress Note-Post Operative ---
Post-Operative Progess Note Surgeon (s)/Ccie (s) Surgeon SHEY GORDON DO Ccie: none Pre-Operative Diagnosis Rectal bleed Post-Operative Diagnosis same plus diverticula int hemorrhoids very small polyps Procedure & Operative Findings Date of Procedure 09/13/20 Procedure Performed/Findings Colonoscopy Anesthesia Type IV sedation by [employer] Estimated Blood Loss Estimated blood loss (mL): none Specimens/Packing Specimens Removed none SHEY GORDON DO Sep 13, 2020 15:24
--- NOTE | 2020-09-13 18:21 | Progress Note ---
JORGITO MARIE,MED STUDENT 09/13/20 1821: Subjective Subjective/Events-last exam He reports feeling uncomfortable this morning due to enemas being administered. Denies any pain currently. Denies nausea/vomiting. Still reporting some blood per rectum. Review of Systems General: No Chills HEENT: No Head Aches Pulmonary: No Cough Cardiovascular: No: Chest Pain Gastrointestinal: No: Nausea, Abdominal Pain Genitourinary: No Dysuria Musculoskeletal: No: shoulder pain, back pain Neurological: No: Weakness, Confusion Objective Exam Last Set of Vital Signs Vital Signs Date Time Temp Pulse Resp B/P (MAP) Pulse Ox O2 Delivery O2 Flow Rate FiO2 09/13/20 15:41 36.0 73 20 170/75 (106) 98 09/13/20 14:35 Room Air Capillary Refill : Less Than 3 Seconds I&O Intake and Output 09/13/20 00:00 Intake Total 1690 ml Output Total 150 ml Balance 1540 ml Intake Oral 690 ml IV Total 1000 ml Output Urine Total 150 ml # Voids 5 # Bowel Movements 8 Daily Weight Change No General: Alert, Oriented X3 HEENT: Atraumatic Neck: Supple, No JVD Lungs: Clear to Auscultation Heart: Regular Rate, Normal S1, Normal S2 Abdomen: Normal Bowel Sounds Extremities: No Edema Skin: No Significant Lesion Neuro: Normal Speech, Normal Tone Psych/Mental Status: Mental Status NL, Mood NL Results/Procedures Lab Laboratory Tests 09/12/20 20:00: Hemoglobin 11.0L, Hematocrit 34L 09/13/20 00:43: Hemoglobin 9.2L, Hematocrit 30L, White Blood Count 12.5H, Red Blood Count 3.04L, Mean Corpuscular Volume 97, Mean Corpuscular Hemoglobin 30, Mean Corpuscular Hemoglobin Concent 31L, Red Cell Distribution Width 13.1, Platelet Count 134, Mean Platelet Volume 13.7H, Sodium Level 140, Potassium Level 3.5L, Chloride Level 107, Carbon Dioxide Level 23, Anion Gap 10, Blood Urea Nitrogen 25H, Creatinine 0.96, Estimat Glomerular Filtration Rate > 60, BUN/Creatinine Ratio 26, Glucose Level 102, Calcium Level 7.9L 09/13/20 03:55: Hemoglobin 9.4L, Hematocrit 29L 09/13/20 15:55: Hemoglobin 8.0L, Hematocrit 25L Radiology Date of Exam:09/12/20 CT ABDOMEN/PELVIS W PROCEDURE: CT abdomen and pelvis with contrast. TECHNIQUE: Multiple contiguous axial images were obtained through the abdomen and pelvis after administration of intravenous contrast. Auto Exposure Controls were utilized during the CT exam to meet ALARA standards for radiation dose reduction. All CT scans use one or more of the following dose optimizing techniques: automated exposure control, MA and/or KvP adjustment based on patient size and exam type or iterative reconstruction. INDICATION: Bright red blood per rectum. History of diverticulitis. COMPARISON: None FINDINGS: There is significant motion artifact during the exam. The lung bases demonstrate no focal consolidation. The heart is mildly large. There is calcific atherosclerosis. The liver has a near the valarie hepatis measuring less than a centimeter in size which is too small to characterize. Small hyperdensities are seen in the superior liver as well, most likely cysts. Cholecystectomy clips are noted. The spleen appears normal. The pancreas is unremarkable. The adrenal glands appear normal. There is a large cyst in the right kidney which measures 9.8 cm in size. Additional smaller cysts are seen in the kidneys bilaterally. The bowel loops are nondistended without obstruction. There is extensive diverticulosis in the descending and sigmoid colon. Mild wall thickening of the descending and sigmoid colon is likely due to decompression and there is no significant surrounding edema. There is a small fat-containing left inguinal hernia. There is a right hip arthroplasty. No acute osseous abnormality is seen. IMPRESSION: 1. Extensive diverticulosis in the distal colon. Mild wall thickening in the distal colon is thought to be due to nondistention rather than a diverticulitis or colitis although mild inflammation is difficult to exclude. 2. Multiple renal cysts bilaterally, largest on the right measuring up to 9.8 cm. 3. Significant motion artifact throughout the examination. Dictated by: Dictated on workstation # [id number] Dict: 09/12/20 0731 Trans: 09/12/2026 [id number] Interpreted by: CAREY LOOMIS MD Electronically signed by: CAREY LOOMIS MD 09/12/20825 Assessment/Plan Assessment/Plan (1) Diverticulosis Status: Chronic Assessment & Plan: CT without clear evidence of inflammation, monitor CBC and vitals. (2) GI bleed Status: Acute Assessment & Plan: Surgery consulted. Hemoglobin with a drop today from 11 to 9.4, surgery planning on doing flexible sigmoidoscopy to look for possible bleeding source today. Continuing to monitor vitals and hemoglobin. Qualifiers: Qualified Codes: K57.91 - Diverticulosis of intestine, part unspecified, without perforation or abscess with bleeding (3) Hypertension Status: Chronic Assessment & Plan: Resume home medications Qualifiers: Qualified Codes: I10 - Essential (primary) hypertension (4) Syncope Status: Acute Assessment & Plan: CT head without significant findings, unclear if he had presyncope vs syncope. Monitor on telemetry. 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 ENRIKE WINCHESTER MD 09/13/20 0283: Supervisory-Addendum Brief Verification & Attestation Participated in pt care: history, MDM, physical Personally performed: exam, history, MDM Care discussed with: Medical Student Procedures: n/a I personally saw and examined patient and did my own history and exam which confirm that documented by the medical student. I directed the plan of care as documented. JORGITO MARIE,MED STUDENT Sep 13, 2020 18:21 ENRIKE WINCHESTER MD Sep 13, 2020 18:53
--- NOTE | 2020-09-13 19:32 | OPERATIVE REPORT ---
DATE OF SERVICE: 09/13/2020 PREOPERATIVE DIAGNOSIS: Rectal bleed. POSTOPERATIVE DIAGNOSES: Rectal bleed, diverticula, internal hemorrhoids and questionable small polyps. PROCEDURE PERFORMED: Colonoscopy. SURGEON: Ron Cobian DO. GLUE MOUNTER OPERATOR: None. ANESTHESIA: IV sedation by the [employer]. SPECIMENS: None. BLOOD LOSS: None. FLUIDS: Per anesthesia. POSTOPERATIVE CONDITION: Stable. INDICATION FOR PROCEDURE: The patient is an 85-year-old male, who is having some rectal bleeding. Hemoglobin dropped and needed a flex sig or colonoscopy to see if we can find where the bleeding was coming from. FINDINGS: The patient had blood throughout the colon, actually able to get into the small intestine, did not have any blood in the small intestine, but did not see any active bleeding. He had very small possible polyps. He had a lot of large diverticula and some internal hemorrhoids, but no other obvious pathology. PROCEDURE NOTE: After informed consent was obtained, the patient was brought to the endoscopy suite and placed in the bed in left lateral decubitus position. He was administered IV sedation by the [employer], who monitored his vitals the entire time, heart rate, blood pressure and pulse ox. The plan was to do just a flex sig because last time he had a colonoscopy, it looked like he was bleeding on the left side; however, we were able to get all the way to the cecum without doing a previous bowel prep. He just had some enemas today and was on some clear liquids, pushed in, noted a lot of diverticula. There was a lot of blood in the colon, but no active bleeding coming from any of the diverticula. Pushed in to about 140 cm, able to get all the way to cecum, took a picture of the appendiceal orifice and then able to get into the terminal ileum. I did not see any blood in the terminal ileum and actually there really was not any blood in the cecum, but in the ascending colon and all the way out, there was a diverticula and there was blood, saw some clots, saw what looked like red blood, but again did not see anything active, nothing draining out or visibly bleeding, insufflated to look circumferentially at the [place] at the cecum, ascending colon, hepatic flexure, transverse colon, splenic flexure, descending colon and sigmoid, again throughout here saw blood, but no active extravasation of blood, noted some internal hemorrhoids, removed the scope. The patient tolerated the procedure, and recovered in the endoscopy suite. Job ID: [id number] DocumentID: [id number] Dictated Date: 09/13/2020 15:28:01 General Ophthalmologist Date: 09/13/2020 19:31:29 Dictated By: RON COBIAN DO
[2020-09-13] MEDS: MELATONIN 3 MG TABLET PO SCH (20:27)
[2020-09-14 00:44] LABS: HEMOGLOBIN 7.1 g/dL (13.3-17.7)
[2020-09-14 06:28] LABS: HEMOGLOBIN 8.1 g/dL (13.3-17.7); MEAN PLATELET VOLUME 13.1 fL (9.0-12.2); WHITE BLOOD COUNT 10.4 10^3/uL (4.3-11.0)
[2020-09-14 06:46] LABS: BUN/CREATININE RATIO 17; CALCIUM 7.9 MG/DL (8.5-10.1); CARBON DIOXIDE 24 MMOL/L (21-32); CHLORIDE 106 MMOL/L (98-107); CREATININE SERUM 0.95 MG/DL (0.60-1.30); GFR ESTIMATED > 60; GLUCOSE 108 MG/DL (70-105); POTASSIUM 3.4 MMOL/L (3.6-5.0); SODIUM 139 MMOL/L (135-145)
[2020-09-14 08:12] VITALS: BP 146/78
[2020-09-14] MEDS ORDERED: KCL 20 MEQ TAB (K-DUR) PO ONE (08:45)
[2020-09-14] MEDS: PANTOPRAZOLE 40 MG (PROTONIX) TAB PO SCH (09:16)
[2020-09-14] MEDS: NS IV 1000 ML 1,000 ML IV SCH (11:16)
--- NOTE | 2020-09-14 11:47 | Discharge Summary ---
Discharge [facility], later [facility] Discharge Medications New, Converted or Re-Newed RX: Other (no new scripts) Continued Medications: Atorvastatin Calcium (Atorvastatin Calcium) 40 Mg Tablet 40 MG PO HS, TAB Fish Oil/Dha/Epa (Fish Oil 1,200 mg Fish Oil) 1 Each Capsule 1 EACH PO DAILY, CAP Hydrochlorothiazide (Hydrochlorothiazide) 12.5 Mg Tablet 12.5 MG PO DAILY, TAB Multivits,Stress Formula (Stress Formula) 1 Each Tablet 1 EACH PO DAILY, TAB Discontinued Medications: Aspirin (Aspirin EC) 81 Mg Tablet. 81 MG PO HS, TAB Patient Instructions Goal/Follow Up Appt: Follow up with Dr. Gutierres on 09/22 at 2:30 pm. Patient Instructions: Stop taking aspirin for now since you have had recurrent episodes of gastrointestinal bleeding. Return to The Hospital For: Fever, abdominal pain, dizziness, shortness of breath Activity & Diet Discharge Diet: No Restrictions Activity as Tolerated: Yes ENRIKE WINCHESTER MD Sep 14, 2020 11:47
[2020-09-14 11:50] VITALS: BP 146/78
--- NOTE | 2020-09-14 16:10 | Discharge Summary ---
Discharge Summary Hospital Course Problems/Diagnosis: (1) Diverticulosis Status: Chronic Assessment & Plan: CT without clear evidence of inflammation, CBC and vitals unremarkable. (2) GI bleed Status: Acute Assessment & Plan: Surgery consulted. Colonoscopy done which showed blood throughout colon and diverticulosis, no acute bleed. Hemoglobin stable after colonoscopy and symptoms improved. May need capsule endoscopy. Held aspirin on d/c. Qualifiers: Qualified Codes: K57.91 - Diverticulosis of intestine, part unspecified, without perforation or abscess with bleeding (3) Hypertension Status: Chronic Assessment & Plan: Resume home medications Qualifiers: Qualified Codes: I10 - Essential (primary) hypertension (4) Syncope Status: Acute Assessment & Plan: CT head without significant findings, unclear if he had presyncope vs syncope. Monitored on telemetry without event. 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 Hospital Course Date of Admission: Sep 12, 2020 at 09:48 Admission Diagnosis : Family Physician/Provider: Tacos Gutierres MD Date of Discharge: 09/14/20 Discharge Diagnosis: See problem list Hospital Course: See problem list Labs and Pending Lab Test: Laboratory Tests 09/14/20 00:35: Hemoglobin 7.1L, Hematocrit 22L 09/14/20 06:10: Hemoglobin 8.1L, Hematocrit 25L, White Blood Count 10.4, Red Blood Count 2.61L, Mean Corpuscular Volume 97, Mean Corpuscular Hemoglobin 31, Mean Corpuscular Hemoglobin Concent 32, Red Cell Distribution Width 13.2, Platelet Count 136, Mean Platelet Volume 13.1H, Sodium Level 139, Potassium Level 3.4L, Chloride Level 106, Carbon Dioxide Level 24, Anion Gap 9, Blood Urea Nitrogen 16, Creatinine 0.95, Estimat Glomerular Filtration Rate > 60, BUN/Creatinine Ratio 17, Glucose Level 108H, Calcium Level 7.9L Home Meds Active Reported Fish Oil 1,200 mg Fish Oil (Fish Oil/Dha/Epa) 1 Each Capsule 1 Each PO DAILY Stress Formula (Multivits,Stress Formula) 1 Each Tablet 1 Each PO DAILY Atorvastatin Calcium 40 Mg Tablet 40 Mg PO HS Hydrochlorothiazide 12.5 Mg Tablet 12.5 Mg PO DAILY Assessment/Pt DC Instructions Follow up at [facility] as directed. Discharge Physical Examination Allergies: Coded Allergies: amoxicillin (Unverified Allergy, Unknown, 09/12/20) states morphine (Verified Adverse Reaction, Unknown, 11/11/18) General Appearance: No Apparent Distress, WD/WN Respiratory: Lungs Clear Cardiovascular: Regular Rate, Rhythm, No Murmur Gastrointestinal: Normal Bowel Sounds, Non Tender Skin: Normal Color, Warm/Dry Neurologic/Psychiatric: Alert, Normal Mood/Affect ENRIKE WINCHESTER MD Sep 14, 2020 16:10
--- NOTE | 2020-09-16 16:37 | Anesthesia-General Post-Op ---
MAC Patient Condition Mental Status/LOC: Same as Preop Cardiovascular: Satisfactory Nausea/Vomiting: Absent Respiratory: Satisfactory Pain: Controlled Complications: Absent Post Op Complications Complications None Follow Up Care/Instructions Patient Instructions None needed. Anesthesiology Discharge Order Discharge Order Patient is doing well, no complaints, stable vital signs, no apparent adverse anesthesia problems. No complications reported per nursing. JOCELINE VELIZ CRNA Sep 16, 2020 16:37
== END 2020-09-14 11:50 | disposition home or self-care (01) ==
LOC: EDUNIT# 05:35 → ER FS 05:39 → UNDOADMOB 09:48 → ICU 09:48 → SDC 09:57 → 4TH 09-13 16:28 → ICU 09-13 16:28 → 4TH 09-13 16:28 → UNDODISOB 09-14 11:50 → SDC 09-14 11:50
PROVIDERS: ATTEND Family Medicine
DX: K62.5 Hemorrhage of anus and rectum (principal); K64.8 Other hemorrhoids; K57.30 Diverticulosis of large intestine without perforation or abscess without bleeding; I10 Essential (primary) hypertension; K57.91 Diverticulosis of intestine, part unspecified, without perforation or abscess with bleeding; R55 Syncope and collapse; I82.409 Acute embolism and thrombosis of unspecified deep veins of unspecified lower extremity; E78.00 Pure hypercholesterolemia, unspecified; I25.10 Atherosclerotic heart disease of native coronary artery without angina pectoris; Z79.82 Long term (current) use of aspirin; Z79.899 Other long term (current) drug therapy; Z88.1 Allergy status to other antibiotic agents; Z88.5 Allergy status to narcotic agent; Z90.49 Acquired absence of other specified parts of digestive tract
CPT/HCPCS: 36410; 36415; 45378; 70450; 72125; 74177; 76937; 80048 ×2; 80053; 83690; 83880; 84484; 85014 ×3; 85018 ×3; 85025; 85027 ×2; 86141; 86850; 86900; 86901; 93005; 96360; 99284; C1751; G0378

== ENCOUNTER 2020-09-27 12:22 | Outpatient (CLI) | payer MEDICARE ==
[~2020-09-27 12:22] MED LIST changes: +FISH1CAP15 PO; +MULT-10 PO
[2020-09-27 12:35] VITALS: BP 131/77
[2020-09-27] MEDS ORDERED: NS IV 500 ML 500 ML IV ONE (12:45)
[2020-09-27 15:15] VITALS: BP 124/69
[2020-09-27 15:40] VITALS: BP 122/67
[2020-09-27 17:35] VITALS: BP 133/57
== END 2020-09-27 18:00 | disposition home or self-care (01) ==
LOC: SDC 12:22
PROVIDERS: ATTEND Family Medicine
DX: D50.9 Iron deficiency anemia, unspecified (principal)
CPT/HCPCS: 36430; 86850; 86900; 86901; 86920; P9016

== ENCOUNTER 2020-12-26 09:16 | Outpatient (RCR) | payer MEDICARE ==
[2020-12-26 09:28] LABS: BASOPHILS # (AUTO) 0.1 10^3/uL (0.0-0.1); BASOPHILS % (AUTO) 1 % (0-10); EOSINOPHILS # (AUTO) 0.2 10^3/uL (0.0-0.3); EOSINOPHILS % (AUTO) 3 % (0-10); HEMATOCRIT 39 % (40-54); HEMOGLOBIN 11.2 g/dL (13.3-17.7); LYMPHOCYTES # (AUTO) 1.8 10^3/uL (1.0-4.0); LYMPHOCYTES % (AUTO) 26 % (12-44); MEAN CORPUSCULAR HEMOGLOBIN 24 pg (25-34); MEAN CORPUSCULAR HGB CONC 29 g/dL (32-36); MEAN CORPUSCULAR VOLUME 82 fL (80-99); MEAN PLATELET VOLUME 11.7 fL (9.0-12.2); MONOCYTES # (AUTO) 0.6 10^3/uL (0.0-1.0); MONOCYTES % (AUTO) 8 % (0-12); NEUTROPHILS # (AUTO) 4.3 10^3/uL (1.8-7.8); NEUTROPHILS % (AUTO) 61 % (42-75); PLATELET COUNT 208 10^3/uL (130-400)
[2020-12-26 09:52] LABS: ALBUMIN 4.2 GM/DL (3.2-4.5); BILIRUBIN,TOTAL 0.9 MG/DL (0.1-1.0); CALCIUM 9.5 MG/DL (8.5-10.1); CREATININE SERUM 1.37 MG/DL (0.60-1.30); POTASSIUM 3.6 MMOL/L (3.6-5.0); TOTAL PROTEIN 8.1 GM/DL (6.4-8.2)
== END 2021-03-26 | disposition home or self-care (01) ==
LOC: ONC 09:16
PROVIDERS: ATTEND Internal Medicine Hematology & Oncology
DX: D50.9 Iron deficiency anemia, unspecified (principal); N28.9 Disorder of kidney and ureter, unspecified; E11.9 Type 2 diabetes mellitus without complications; I10 Essential (primary) hypertension
CPT/HCPCS: 80053; 82728; 83540; 83550; 85025; G0463; 99214

== ENCOUNTER → 2021-02-23 | Outpatient (CLI) | payer MEDICARE ==
[2021-02-23 10:53] LABS: ABG PCO2 40 MMHG (35-45); ABG PH 7.44 (7.37-7.43); ABG PO2 69 MMHG (79-93); ABG TCO2 28.4 MMOL/L (21.0-31.0)
[2021-02-23 10:54] LABS: ABG BASE EXCESS 2.8 MMOL/L (-2.5-2.5); ABG OXYGEN SATURATION 94 % (94-100); ALLENS TEST YES-POS
[2021-02-23 10:55] LABS: INSPIRED O2 ROOM AIR; VENTILATOR NO
[2021-02-23 10:56] LABS: PATIENT TEMP 37
[2021-02-23 11:06] LABS: BASOPHILS % (AUTO) 1 % (0-10); EOSINOPHILS % (AUTO) 2 % (0-10); HEMATOCRIT 44 % (40-54); HEMOGLOBIN 13.7 g/dL (13.3-17.7); LYMPHOCYTES % (AUTO) 20 % (12-44); MEAN CORPUSCULAR HEMOGLOBIN 28 pg (25-34); MEAN CORPUSCULAR HGB CONC 31 g/dL (32-36); MEAN CORPUSCULAR VOLUME 88 fL (80-99); MONOCYTES % (AUTO) 8 % (0-12); NEUTROPHILS # (AUTO) 5.3 X 10^3 (1.8-7.8); NEUTROPHILS % (AUTO) 68 % (42-75); PLATELET COUNT 127 10^3/uL (130-400); WHITE BLOOD COUNT 7.7 10^3/uL (4.3-11.0)
[2021-02-23 11:07] LABS: BASOPHILS # (AUTO) 0.1 10^3/uL (0.0-0.1); EOSINOPHILS # (AUTO) 0.2 10^3/uL (0.0-0.3); LYMPHOCYTES # (AUTO) 1.6 X 10^3 (1.0-4.0); MONOCYTES # (AUTO) 0.6 X 10^3 (0.0-1.0)
[2021-02-23 11:40] LABS: CALCIUM 8.7 MG/DL (8.5-10.1); CREATININE SERUM 1.04 MG/DL (0.60-1.30); POTASSIUM 3.7 MMOL/L (3.6-5.0)
[2021-02-23 11:41] LABS: ALBUMIN 4.3 GM/DL (3.2-4.5); BILIRUBIN,TOTAL 0.8 MG/DL (0.1-1.0); TOTAL PROTEIN 7.2 GM/DL (6.4-8.2)
== END ==
LOC: LAB FS 10:09
PROVIDERS: ATTEND Family Medicine
DX: D50.9 Iron deficiency anemia, unspecified (principal); I10 Essential (primary) hypertension; R20.2 Paresthesia of skin
CPT/HCPCS: 36415; 80053; 82607; 82728; 82805; 83540; 83550; 83605; 84443; 85025

== ENCOUNTER 2021-04-11 12:36 | Outpatient (RCR) | payer MEDICARE ==
[2021-04-11 12:57] LABS: BASOPHILS # (AUTO) 0.1 10^3/uL (0.0-0.1); BASOPHILS % (AUTO) 1 % (0-10); EOSINOPHILS # (AUTO) 0.1 10^3/uL (0.0-0.3); EOSINOPHILS % (AUTO) 2 % (0-10); HEMATOCRIT 47 % (40-54); HEMOGLOBIN 15.5 g/dL (13.3-17.7); LYMPHOCYTES % (AUTO) 23 % (12-44); MEAN CORPUSCULAR HEMOGLOBIN 31 pg (25-34); MEAN CORPUSCULAR HGB CONC 33 g/dL (32-36); MEAN CORPUSCULAR VOLUME 92 fL (80-99); MEAN PLATELET VOLUME 12.8 fL (9.0-12.2); MONOCYTES # (AUTO) 0.6 10^3/uL (0.0-1.0); MONOCYTES % (AUTO) 7 % (0-12); NEUTROPHILS # (AUTO) 5.7 10^3/uL (1.8-7.8); NEUTROPHILS % (AUTO) 66 % (42-75); PLATELET COUNT 154 10^3/uL (130-400); WHITE BLOOD COUNT 8.5 10^3/uL (4.3-11.0)
[2021-04-11 13:14] LABS: ALBUMIN 4.2 GM/DL (3.2-4.5); CALCIUM 9.2 MG/DL (8.5-10.1); POTASSIUM 3.5 MMOL/L (3.6-5.0); TOTAL PROTEIN 7.5 GM/DL (6.4-8.2)
[2021-04-11 13:31] LABS: BILIRUBIN,TOTAL 1.8 MG/DL (0.1-1.0); CREATININE SERUM 1.18 MG/DL (0.60-1.30)
== END 2021-05-19 | disposition home or self-care (01) ==
LOC: ONC 12:36
PROVIDERS: ATTEND Internal Medicine Hematology & Oncology
DX: D50.9 Iron deficiency anemia, unspecified (principal); N28.9 Disorder of kidney and ureter, unspecified; E11.9 Type 2 diabetes mellitus without complications; I10 Essential (primary) hypertension; I25.10 Atherosclerotic heart disease of native coronary artery without angina pectoris
CPT/HCPCS: 80053; 82728; 83540; 83550; 85025; G0463; 99213

== ENCOUNTER 2023-03-04 12:17 | Emergency (ER) | payer MEDICARE ==
[2023-03-04] MEDS ORDERED: NS IV 1000 ML 1,000 ML IV STA (12:31)
[2023-03-04] MEDS ORDERED: PANTOPRAZOLE INJECTION 40 MG VIAL IV STA (12:31)
--- NOTE | 2023-03-04 12:34 | ED GI ---
General Chief Complaint: Abdominal/GI Problems Stated Complaint: RECTAL BLEEDING Nursing Triage Note: PT REPORT SHE HAS HAD 4-5 DARK TARRY STOOLS THIS AM. HAS A HX OF GI BLEEDS. Source of Information: Patient, EMS History of Present Illness Date Seen by Provider: Mar 04, 2023 Time Seen by Provider: 12:18 Initial Comments 87-year-old male presenting with complaints of dark tarry stools x3 at home this morning. He has a history of prior GI bleeds with polyps and peptic ulcer disease. He called 911 this morning as he had had 3 dark tarry stools and with his history of prior GI bleeding he was concerned that it could get worse. He denies having any abdominal pain but does have some cramping right before he has the stool. He denies having any nausea or vomiting. He denies taking a blood thinner. Timing/Duration: 1-3 Hours Severity/Quality: Moderate Associated Symptoms: No Back Pain, No Chest Pain, No Diaphoresis, No Fever/Chills, No Fatigue, No Headache, No Heartburn, No Nausea/Vomiting, No Rash, No Shortness of Air, No Swelling/Mass in Abdomen, No Syncope, No Weakness Allergies and Home Medications Allergies Coded Allergies: amoxicillin (Unverified Allergy, Unknown, 09/12/20) states morphine (Verified Adverse Reaction, Unknown, 11/11/18) Patient Home Medication List Home Medication List Reviewed: Yes Atorvastatin Calcium (Atorvastatin Calcium) 40 Mg Tablet, 40 MG PO HS, (Reported) Entered as Reported by: ALICE RECIO on 09/12/20 1306 Fish Oil/Dha/Epa (Fish Oil 1,200 mg Fish Oil) 1 Each Capsule, 1 EACH PO DAILY, (Reported) Entered as Reported by: ALICE RECIO on 09/12/20 1306 Hydrochlorothiazide (Hydrochlorothiazide) 12.5 Mg Tablet, 12.5 MG PO DAILY, (Reported) Entered as Reported by: ALICE RECIO on 01/12/20 0901 Multivits,Stress Formula (Stress Formula) 1 Each Tablet, 1 EACH PO DAILY, (Reported) Entered as Reported by: ALICE RECIO on 09/12/20 1306 Review of Systems Review of Systems Constitutional: no symptoms reported EENTM: No Symptoms Reported Respiratory: No Symptoms Reported Cardiovascular: No Symptoms Reported Gastrointestinal: See HPI Genitourinary: No Symptoms Reported Musculoskeletal: no symptoms reported Skin: no symptoms reported Psychiatric/Neurological: No Symptoms Reported Past Qvwpytu-Bfcpoy-Kdiono Hx Patient Social History Tobacco Use?: No Use of E-Cig and/or Vaping dev: No Substance use?: No Alcohol Use?: No Pt feels they are or have been: No Seasonal Allergies Seasonal Allergies: No Past Medical History Surgery/Hospitalization HX: GI BLEED Surgeries: Yes Appendectomy, CABG, Gallbladder, Joint Replacement Respiratory: No Cardiac: Yes Coronary Artery Disease Neurological: No Genitourinary: No Gastrointestinal: Yes Gastrointestinal Bleed, Hiatal Hernia, Gall Bladder Disease Musculoskeletal: No Arthritis Endocrine: No HEENT: Yes Cataract Loss of Vision: Bilateral Hearing Impairment: Hard of Hearing Cancer: No Psychosocial: No Integumentary: No Blood Disorders: No Family Medical History Blood clots G8 SISTER Other Conditions/Hx Physical Exam Vital Signs Vital Signs - First Documented 03/04/23 12:17 Temp 36.6 Pulse 65 Resp 16 B/P (MAP) 157/79 (105) Pulse Ox 96 O2 Delivery Room Air Capillary Refill : Less Than 3 Seconds Height/Weight/BMI Height: 5'10.00" Weight: 202lbs. 0.0oz. 91.327472cd; 27.82 BMI Method:Stated General Appearance: WD/WN, no apparent distress HEENT: PERRL/EOMI Respiratory: chest non-tender, lungs clear, normal breath sounds, no respiratory distress, no accessory muscle use Cardiovascular: normal peripheral pulses, regular rate, rhythm Gastrointestinal: normal bowel sounds, non tender, soft, no pulsatile mass Rectal: deferred, heme positive stool (Melanotic stool with some bright red blood when patient had a bowel movement here in the ED) Extremities: normal range of motion, non-tender, normal capillary refill Neurologic/Psychiatric: alert, oriented x 3 Skin: normal color, warm/dry Progress/Results/Core Measures Results/Orders Lab Results Laboratory Tests Test 03/04/23 12:35 Range/Units White Blood Count 8.8 4.3-11.0 10^3/uL Red Blood Count 4.61 4.30-5.52 10^6/uL Hemoglobin 14.9 13.3-17.7 g/dL Hematocrit 44 40-54 % Mean Corpuscular Volume 96 80-99 fL Mean Corpuscular Hemoglobin 32 25-34 pg Mean Corpuscular Hemoglobin Concent 34 32-36 g/dL Red Cell Distribution Width 12.8 10.0-14.5 % Platelet Count 119 L 130-400 10^3/uL Mean Platelet Volume 12.6 H 9.0-12.2 fL Immature Granulocyte % (Auto) 0 % Neutrophils (%) (Auto) 67 42-75 % Lymphocytes (%) (Auto) 24 12-44 % Monocytes (%) (Auto) 7 0-12 % Eosinophils (%) (Auto) 1 0-10 % Basophils (%) (Auto) 1 0-10 % Neutrophils # (Auto) 5.9 1.8-7.8 10^3/uL Lymphocytes # (Auto) 2.1 1.0-4.0 10^3/uL Monocytes # (Auto) 0.6 0.0-1.0 10^3/uL Eosinophils # (Auto) 0.1 0.0-0.3 10^3/uL Basophils # (Auto) 0.1 0.0-0.1 10^3/uL Immature Granulocyte # (Auto) 0.0 0.0-0.1 10^3/uL Prothrombin Time 13.0 12.2-14.7 SEC INR Comment 0.9 0.8-1.4 Activated Partial Thromboplast Time 27 24-35 SEC Sodium Level 139 135-145 MMOL/L Potassium Level 4.0 3.6-5.0 MMOL/L Chloride Level 101 98-107 MMOL/L Carbon Dioxide Level 29 21-32 MMOL/L Anion Gap 9 5-14 MMOL/L Blood Urea Nitrogen 23 H 7-18 MG/DL Creatinine 1.16 0.60-1.30 MG/DL Estimat Glomerular Filtration Rate 61 BUN/Creatinine Ratio 20 Glucose Level 142 H 70-105 MG/DL Calcium Level 8.8 8.5-10.1 MG/DL Corrected Calcium 8.9 8.5-10.1 MG/DL Magnesium Level 1.9 1.6-2.4 MG/DL Total Bilirubin 1.0 0.1-1.0 MG/DL Aspartate Amino Transf (AST/SGOT) 18 5-34 U/L Alanine Aminotransferase (ALT/SGPT) 5 0-55 U/L Alkaline Phosphatase 45 40-136 U/L Myoglobin 58.4 <72.0 NG/ML Troponin I < 0.30 <0.30 NG/ML Pro-B-Type Natriuretic Peptide 336.2 <450.0 PG/ML Total Protein 6.6 6.4-8.2 GM/DL Albumin 3.9 3.2-4.5 GM/DL Lipase 31 8-78 U/L My Orders Orders - ZHENG SANDS MD Cbc And Automated Diff (03/04/23 12:22) Magnesium (03/04/23 12:22) Ekg Tracing (03/04/23 12:22) Comprehensive Metabolic Panel (03/04/23 12:22) Myoglobin Serum (03/04/23 12:22) Protime With Inr (03/04/23 12:) Partial Thromboplastin Time (03/04/23 12:) O2 (03/04/23 12:) Monitor-Rhythm Ecg Trace Only (03/04/23 12:) Ed Iv/Invasive Line Start (03/04/23 12:22) Lipase (03/04/23 12:22) Troponin I Fs (03/04/23 12:22) Probnp Fs (03/04/23 12:22) Ns Iv 1000 Ml (Ns Iv 1000 Ml) (03/04/23 12:31) Pantoprazole Injection (Pantoprazole Inj (03/04/23 12:31) Ct Abdomen/Pelvis W (03/04/23 12:31) Iohexol Injection (Omnipaque 350 Mg/Ml 1 (03/04/23 13:15) Received Contrast (Hold Metformin- Contr (03/04/23 13:15) Ns (Ivpb) 100 Ml (Sodium Chloride 0.9% 1 (03/04/23 13:15) Medications Given in ED Current Medications Medications Dose Ordered Sig/Jamir Route Start Time Stop Time Status Last Admin Dose Admin Iohexol 80 ml ONCE ONCE IV 03/04/23 13:15 03/04/23 13:17 DC 03/04/23 13:28 80 ML Sodium Chloride 100 ml ONCE ONCE IV 03/04/23 13:15 03/04/23 13:17 DC 03/04/23 13:28 80 ML Vital Signs/I&O 03/04/23 03/04/23 12:17 13:45 Temp 36.6 36.6 Pulse 65 82 Resp 16 16 B/P (MAP) 157/79 (105) 142/68 Pulse Ox 96 O2 Delivery Room Air Room Air Blood Pressure Mean: 105 Progress Progress Note #1: Progress Note Differential diagnosis includes peptic ulcer disease, diverticulitis, diverticulosis, polyps, lower GI bleed, arteriovenous malformation. IV was established by EMS. Obtain labs for complete blood count, comprehensive metabolic profile, coagulation factors. CT scan of the abdomen and pelvis with IV contrast to look for signs of acute diverticulitis or acute GI bleeding or ischemia. Administer normal saline 1 L IV fluid bolus for hydration, Protonix 40 mg IV for possible gastritis/peptic ulcer disease. Patient is hemodynamically stable with initial blood pressure 157/79. Heart rate in the 60s and sinus rhythm. Cardiac monitor and storage bin tender shows sinus rhythm with a heart rate in the 60s. Obtain electrocardiogram. Progress Note #2: Time: 12:59 Progress Note Electrocardiogram did not show any acute ST elevation. Overall appears similar to tracing from September 12, 2020. His blood count came back showing hemoglobin of 14.9. He did have a single stool here in the ED that was melanotic with some bright red blood. Progress Note #3: Time: 13:20 Progress Note Discussed with on-call hospitalist for [facility], Dr. Julien. I reviewed with her that the patient had stable hemoglobin of 14.9 and was hemodynamically stable. Blood pressures been anywhere from 1 27-1 57 systolic. He did have a total of 4 dark stools today. 1 was here in the ED. He has had no nausea or vomiting and has no abdominal pain. His comprehensive metabolic profile did not show any acute electrolyte abnormality. CT scan has been performed and did not show any acute significant abnormality on my review. Radiology report is pending. She accepted the patient for admission and recommended admission to [facility]. Progress Note #4: Progress Note CT scan report back after patient had transferred to [place] and did not show acute abnormality to account for his bleeding. Initial ECG Impression Date: Mar 04, 2023 Initial ECG Impression Time: 12:46 Initial ECG Rate: 61 Initial ECG Rhythm: Normal Sinus Initial ECG Comparisson: Unchanged (09/12/2020) Comment Electrocardiogram shows sinus rhythm with first-degree AV block and a heart rate of 61 bpm. Incomplete right bundle branch block. No acute ST elevation. There is some artifact on the tracing. SC interval 210 ms. QT interval 337 ms with a QTc interval 341 ms. Appears similar to tracing from September 12, 2020 Diagnostic Imaging Diagonstic Imaging: CT Plain Films/CT/US/NM/MRI: abdomen, pelvis Comments [facility]. [place], [place] NAME: LOLIS HAMILTON [facility] REC#: [id number] PT STATUS: REG ER : 1935 PHYSICIAN: ZHENG SANDS MD ADMIT DATE: 03/04/23/ER FS Signed Date of Exam:03/04/23 CT ABDOMEN/PELVIS W EXAMINATION: CT abdomen and pelvis with intravenous contrast. TECHNIQUE: Multiple contiguous axial images were obtained through the abdomen and pelvis after the uneventful administration of intravenous contrast. All CT scans use one or more of the following dose optimizing techniques: automated exposure control, MA and/or KvP adjustment based on patient size and exam type or iterative reconstruction. HISTORY: dark tarry stool, hx diverticulosis, PUD COMPARISON: 09/12/2020 FINDINGS: Lung bases: The lung bases are clear. Solid organs: Multiple hepatic cysts are present. Liver is otherwise unremarkable. The gallbladder is surgically absent. There is no biliary ductal dilation. Pancreas is normal. Spleen is normal. Adrenal glands are normal. Multiple bilateral renal cysts are present. No hydronephrosis. Bowel: The stomach and small bowel are normal without obstruction. There is scattered colonic diverticulosis. There are no secondary signs of acute appendicitis. Peritoneum: There is no intraperitoneal free fluid or free air. No suspicious lymphadenopathy. Vasculature: Calcification of the aorta without aneurysm. Musculoskeletal: Degenerative changes of the spine without suspicious osseous lesion or compression fracture. Surgical changes of right hip arthroplasty. Pelvis: The prostate gland is normal. The urinary bladder is normal. IMPRESSION: 1. No acute abnormality in the abdomen or pelvis. 2. Colonic diverticulosis without findings of diverticulitis. Dictated by: Dictated on workstation # [id number] Dict: 03/04/23 1334 Trans: 03/04/23 1346 [facility] [id number] Interpreted by: JORGITO BEE DO Electronically signed by: JORGITO BEE DO 03/04/23 1603 Reviewed: Reviewed by Me Critical Care Note Critical Care Total Time (minutes) 45 minutes Progress I spent at least 45 minutes of critical care time with the patient. Time was excluding separately billable procedures. Time was spent obtaining history from patient and family, ordering tests and reviewing results, ordering interventions and reviewing response, discussion with consultants, documentation in the chart. Patient was at risk of hemodynamic compromise and collapse with history of acute GI bleeding and blood loss requiring transfusions. He required my immediate and direct intervention and management to help stabilize his condition and arrange for transfer to higher level of care. Departure Impression Primary Impression: Acute lower gastrointestinal bleeding Disposition: XFER SHT-TRM HOSP Condition: Critical Transfer Transfer Reason: Patient preference (Recommendation of Dr. Julien) Time Spoke to Accepting Phy: 13:20 Transfer Progress Notes Discussed with on-call hospitalist for [facility], Dr. Julien. I reviewed with her that the patient had stable hemoglobin of 14.9 and was hemodynamically stable. Blood pressures been anywhere from 1 27-1 57 systolic. He did have a total of 4 dark stools today. 1 was here in the ED. He has had no nausea or vomiting and has no abdominal pain. His comprehensive metabolic profile did not show any acute electrolyte abnormality. CT scan has been performed and did not show any acute significant abnormality on my review. Radiology report is pending. She accepted the patient for admission and recommended admission to [facility]. Transfer Facility: [facility] Method of Transfer: EMS Departure-Patient Inst. Referrals: DEREK PAUL MD (PCP/Family) Primary Care Physician ZHENG SANDS MD Mar 04, 2023 12:34
[2023-03-04 12:37] LABS: BASOPHILS # (AUTO) 0.1 10^3/uL (0.0-0.1); BASOPHILS % (AUTO) 1 % (0-10); EOSINOPHILS # (AUTO) 0.1 10^3/uL (0.0-0.3); EOSINOPHILS % (AUTO) 1 % (0-10); HEMATOCRIT 44 % (40-54); HEMOGLOBIN 14.9 g/dL (13.3-17.7); LYMPHOCYTES # (AUTO) 2.1 10^3/uL (1.0-4.0); LYMPHOCYTES % (AUTO) 24 % (12-44); MEAN CORPUSCULAR HEMOGLOBIN 32 pg (25-34); MEAN CORPUSCULAR HGB CONC 34 g/dL (32-36); MEAN CORPUSCULAR VOLUME 96 fL (80-99); MEAN PLATELET VOLUME 12.6 fL (9.0-12.2); MONOCYTES # (AUTO) 0.6 10^3/uL (0.0-1.0); MONOCYTES % (AUTO) 7 % (0-12); NEUTROPHILS # (AUTO) 5.9 10^3/uL (1.8-7.8); NEUTROPHILS % (AUTO) 67 % (42-75); PLATELET COUNT 119 10^3/uL (130-400); WHITE BLOOD COUNT 8.8 10^3/uL (4.3-11.0)
[2023-03-04 12:55] LABS: INR 0.9 (0.8-1.4)
[2023-03-04 13:09] LABS: ALANINE AMINOTRANSFERASE 5 U/L (0-55); ALKALINE PHOSPHATASE 45 U/L (40-136); BUN/CREATININE RATIO 20; CALCIUM 8.8 MG/DL (8.5-10.1); CARBON DIOXIDE 29 MMOL/L (21-32); CHLORIDE 101 MMOL/L (98-107); CREATININE SERUM 1.16 MG/DL (0.60-1.30); GFR ESTIMATED 61; GLUCOSE 142 MG/DL (70-105); MAGNESIUM 1.9 MG/DL (1.6-2.4); SODIUM 139 MMOL/L (135-145)
[2023-03-04 13:10] LABS: ALBUMIN 3.9 GM/DL (3.2-4.5); LIPASE 31 U/L (8-78); TOTAL PROTEIN 6.6 GM/DL (6.4-8.2)
[2023-03-04] MEDS ORDERED: NS 100 ML (IVPB) BAG IV ONE (13:15)
[2023-03-04] MEDS ORDERED: IOHEXOL 350 MG/ML 100 ML (OMNIPAQUE 350) VIAL IV ONE (13:15)
[2023-03-04] MEDS ORDERED: HOLD METFORMIN - RECEIVED CONTRAST 20 ML VIAL IV SCH (13:15)
--- NOTE | 2023-03-04 13:40 | Diagnostic Imaging Report ---
EXAMINATION: CT abdomen and pelvis with intravenous contrast. TECHNIQUE: Multiple contiguous axial images were obtained through the abdomen and pelvis after the uneventful administration of intravenous contrast. All CT scans use one or more of the following dose optimizing techniques: automated exposure control, MA and/or KvP adjustment based on patient size and exam type or iterative reconstruction. HISTORY: dark tarry stool, hx diverticulosis, PUD COMPARISON: 09/12/2020 FINDINGS: Lung bases: The lung bases are clear. Solid organs: Multiple hepatic cysts are present. Liver is otherwise unremarkable. The gallbladder is surgically absent. There is no biliary ductal dilation. Pancreas is normal. Spleen is normal. Adrenal glands are normal. Multiple bilateral renal cysts are present. No hydronephrosis. Bowel: The stomach and small bowel are normal without obstruction. There is scattered colonic diverticulosis. There are no secondary signs of acute appendicitis. Peritoneum: There is no intraperitoneal free fluid or free air. No suspicious lymphadenopathy. Vasculature: Calcification of the aorta without aneurysm. Musculoskeletal: Degenerative changes of the spine without suspicious osseous lesion or compression fracture. Surgical changes of right hip arthroplasty. Pelvis: The prostate gland is normal. The urinary bladder is normal. IMPRESSION: 1. No acute abnormality in the abdomen or pelvis. 2. Colonic diverticulosis without findings of diverticulitis. Dictated by: Dictated on workstation # [id number]
[2023-03-04 13:45] VITALS: BP 142/68
== END 2023-03-04 13:53 | disposition short-term general hospital (02) ==
LOC: EDUNIT# 12:17 → ER FS 12:18
DX: K92.1 Melena (principal); I44.0 Atrioventricular block, first degree; I45.10 Unspecified right bundle-branch block
CPT/HCPCS: 36415; 74177; 80053; 83690; 83735; 83874; 83880; 84484; 85025; 85610; 85730; 93005; 93041; Q9967

== ENCOUNTER 2023-03-06 08:47 | Outpatient (CLI) | payer MEDICARE ==
[~2023-03-06] VITALS: Ht 177.8 cm; Wt 76.7 kg
== END 2023-03-06 10:23 | disposition home or self-care (01) ==
LOC: PREOP 08:47
PROVIDERS: ATTEND Surgery
DX: Z01.818 Encounter for other preprocedural examination (principal)

== ENCOUNTER 2023-03-11 10:23 | Day surgery (SDC) | payer MEDICARE ==
[~2023-03-11] VITALS: Ht 177.8 cm; Wt 76.7 kg
[2023-03-11] MEDS ORDERED: LACTATED RINGERS 1,000 ML 1,000 ML IV STA (10:32)
[2023-03-11] MEDS ORDERED: LACTATED RINGERS 1,000 ML 1,000 ML IV ONE (10:35)
[2023-03-11] MEDS ORDERED: HURRICAINE EXT TUBE (BENZOCAINE) ONE (10:35)
[2023-03-11] MEDS ORDERED: HURRICAINE EXT TUBE (BENZOCAINE) XX PRN (10:45)
[2023-03-11 11:00] VITALS: BP 178/101
--- NOTE | 2023-03-11 11:14 | Progress Note-Pre Operative ---
Pre-Operative Progress Note Date H&P Reviewed: Mar 11, 2023 Time H&P Reviewed: 11:13 History & Physical: H&P Reviewed, Patient Examed, No changes noted Pre-Operative Diagnosis: Rectal bleed and melena SHEY GORDON DO Mar 11, 2023 11:14
[2023-03-11] MEDS ORDERED: proPOfol INJECTION 200 MG/20 ML VIAL IV ONE (12:29)
[2023-03-11 12:55] VITALS: BP 94/66
[2023-03-11 13:00] VITALS: BP 105/62
--- NOTE | 2023-03-11 13:00 | Progress Note-Post Operative ---
Post-Operative Progess Note Surgeon (s)/Software Test And Validation Engineer (s) Surgeon SHEY GORDON DO Software Test And Validation Engineer: Katie Montes, MSIII Pre-Operative Diagnosis Rectal bleed and melena Post-Operative Diagnosis Gastritis Hiatal hernia Polyp diverticula int hemorrhoids Procedure & Operative Findings Date of Procedure 03/11/23 Procedure Performed/Findings EGD with biopsy Colonoscopy with snare polypectomy PROCEDURE NOTE: After informed consent was obtained, the patient was brought to the endoscopy suite, placed in bed in left lateral decubitus position. He was administered IV sedation by the ISSUING OPERATOR who then monitored vitals the entire time, heart rate, blood pressure and pulse ox and the scope was inserted down the mouth through the esophagus into the stomach. On the way down, noted some mild esophagitis, took a picture, pushed into the stomach, pushed past the antrum into the duodenum. Duodenum looked good. Pulled back and did a biopsy of antrum, then retroflexed the scope, saw small grade II AFS hiatal hernia, took a picture of this and then pulled the scope into the GE junction, took another picture of the hiatal hernia and then did a biopsy of the GE junction. Pushed the scope back into the stomach, suctioned all the air out of the stomach. At this point pulled the scope up the esophagus and out the mouth. Switched camera, switched gloves, went down below and started the colonoscopy. Pushed all the way to about 150 cm and pushed into the cecum, took a picture of the appendiceal orifice and noted the ileocecal valve. On the way in found a polyp in the descending colon that I removed with the snare. I also saw large diverticula and took pictures of them. From the Cecum I slowly withdrew the scope insufflating to look circumferentially at the coleman going up the ascending colon to the hepatic flexure, then down the transverse colon, splenic flexure, into the descending colon down in the sigmoid and then into the rectal vault and retroflexed the scope. Took a picture of the internal hemorrhoids. The patient tolerated the procedure and he recovered in the endoscopy suite. Recommended for repeat colonoscopy in 5 years Anesthesia Type IV sedation by ISSUING OPERATOR Estimated Blood Loss Estimated blood loss (mL): scant Specimens/Packing Specimens Removed antral bx polyp in body of stomach bx GE jxn bx Desc colon polyp SHEY GORDON DO Mar 11, 2023 13:00
--- NOTE | 2023-03-11 13:01 | Endoscopy Discharge Instruct ---
Endo Procedure/Findings Findings 1.: Polyp (in the body of the stomach), Gastritis 2.: Hiatal Hernia 3.: Polyp 4.: Diverticulosis, Internal Hemorrhoids Discharge Instructions - Activity: You might feel a little sleepy until tomorrow. This is due to the medicine you received to relax you. Until tomorrow, you should: NOT drive a car, operate machinery or power tools. NOT drink any alcoholic beverages. NOT make any important decisions or sign importortant papers. Do not return to work until tomorrow, unless otherwise instructed. Resume previous activities tomorrow. Diet: Start by taking liquids. If you tolerate liquids, advance to solid food. 1.: EGD in 3 years 2.: Colonscopy in 5 years Notify Physician - If you experience excessive bleeding, unusual abdominal pain, fever, or chest pain, contact your doctor immediately. Follow-Up: Other Follow up in my office in one week SHEY GORDON DO Mar 11, 2023 13:01
[2023-03-11 13:05] VITALS: BP 99/62
[2023-03-11 13:10] VITALS: BP 99/62
[2023-03-11 13:28] VITALS: BP 99/62
--- NOTE | 2023-03-11 13:33 | Anesthesia-General Post-Op ---
MAC Patient Condition Mental Status/LOC: Same as Preop Cardiovascular: Satisfactory Nausea/Vomiting: Absent Respiratory: Satisfactory Pain: Controlled Complications: Absent Post Op Complications Complications None Follow Up Care/Instructions Patient Instructions None needed. Anesthesiology Discharge Order Discharge Order Patient is doing well, no complaints, stable vital signs, no apparent adverse anesthesia problems. No complications reported per nursing. JOCELINE VELIZ CRNA Mar 11, 2023 13:33
== END 2023-03-11 13:45 | disposition home or self-care (01) ==
LOC: ENDO 10:23
PROVIDERS: ATTEND Surgery
DX: D12.4 Benign neoplasm of descending colon (principal); K31.7 Polyp of stomach and duodenum; K29.71 Gastritis, unspecified, with bleeding; K44.9 Diaphragmatic hernia without obstruction or gangrene; K57.31 Diverticulosis of large intestine without perforation or abscess with bleeding; K64.8 Other hemorrhoids
CPT/HCPCS: 88305